=== PATIENT | female | born 1985 | race American Indian/Alaskan Native ===

== ENCOUNTER 2017-06-20 18:37 | Emergency (ER) | payer MEDICAID ==
--- NOTE | 2017-06-20 20:27 | Emergency Department Report ---
ED General Adult HPI - General Chief complaint: Weakness Stated complaint: WEAK/DIZZY Time Seen by Provider: 06/20/17 20:21 Source: patient Mode of arrival: Stretcher Limitations: No Limitations - History of Present Illness Initial comments: Patient is a 32-year-old female past medical history of diabetes and liver disease who presents with weakness. Patient was feeling weak today and lightheaded. She states that she usually feels this way and she needs to get TPN. He states that she has generalized weakness 5-6 times a day the symptoms are moderate TPN makes it better and nothing makes it worse. Patient denies having also chest pain or shortness of breath. - Related Data Home Medications Medication Instructions Recorded Confirmed Last Taken Insulin Lispro [HumaLOG VIAL] 1 unit SUBDERMAL ACHS 09/08/16 09/08/16 Unknown Previous Rx's Medication Instructions Recorded Last Taken Type Amoxicillin/K Clav Tab [Augmentin 1 each PO Q12HR #14 tablet 09/11/16 Unknown Rx 500 MG TAB] Fluconazole [Diflucan TAB] 200 mg PO QDAY #11 tablet 09/11/16 Unknown Rx Promethazine [Phenergan TAB] 25 mg PO Q6HR PRN #20 tab 09/11/16 Unknown Rx Allergies Allergy/AdvReac Type Severity Reaction Status Date / Time levothyroxine sodium Allergy Hives Verified 06/22/13 05:13 [From Synthroid] pregabalin [From Lyrica] Allergy Hives Verified 06/22/13 05:13 propranolol HCl Allergy Hives Verified 06/22/13 05:13 [From Inderal LA] lactose AdvReac Diarrhea Verified 09/10/16 10:18 ED Review of Systems ROS: Stated complaint: WEAK/DIZZY Other details as noted in HPI Constitutional: malaise, weakness. denies: chills, fever Eyes: denies: eye pain, eye discharge, vision change ENT: denies: ear pain, throat pain Respiratory: denies: cough, shortness of breath, wheezing Cardiovascular: denies: chest pain, palpitations Endocrine: no symptoms reported Gastrointestinal: denies: abdominal pain, nausea, diarrhea Genitourinary: denies: urgency, dysuria, discharge Musculoskeletal: denies: back pain, joint swelling, arthralgia Skin: denies: rash, lesions Neurological: denies: headache, weakness, paresthesias Psychiatric: denies: anxiety, depression Hematological/Lymphatic: denies: easy bleeding, easy bruising ED Past Medical Hx - Past Medical History Hx Hypertension: Yes Hx Diabetes: Yes Hx Liver Disease: Yes (cirrhosis, auto immune hepatitis) Additional medical history: awaiting pancreatic transplant (sees [facility]), hypothyroidism. Graves Disease, costochondriasis, diabetic diarrhea - Surgical History Additional Surgical History: tubal ligation - Social History Smoking Status: Never Smoker Substance Use Type: None - Medications Home Medications: Home Medications Medication Instructions Recorded Confirmed Last Taken Type Insulin Lispro [HumaLOG VIAL] 1 unit SUBDERMAL ACHS 09/08/16 09/08/16 Unknown History Amoxicillin/K Clav Tab [Augmentin 1 each PO Q12HR #14 tablet 09/11/16 Unknown Rx 500 MG TAB] Fluconazole [Diflucan TAB] 200 mg PO QDAY #11 tablet 09/11/16 Unknown Rx Promethazine [Phenergan TAB] 25 mg PO Q6HR PRN #20 tab 09/11/16 Unknown Rx ED Physical Exam - General Limitations: No Limitations General appearance: cachectic - Head Head exam: Present: atraumatic, normocephalic - Eye Eye exam: Present: normal appearance - ENT ENT exam: Present: mucous membranes moist - Neck Neck exam: Present: normal inspection - Respiratory Respiratory exam: Present: normal lung sounds bilaterally. Absent: respiratory distress - Cardiovascular Cardiovascular Exam: Present: regular rate, normal rhythm. Absent: systolic murmur, diastolic murmur, rubs, gallop - GI/Abdominal GI/Abdominal exam: Present: soft, normal bowel sounds - Extremities Exam Extremities exam: Present: normal inspection - Back Exam Back exam: Present: normal inspection - Neurological Exam Neurological exam: Present: alert, oriented X3 - Psychiatric Psychiatric exam: Present: normal affect, normal mood - Skin Skin exam: Present: warm, dry, intact, normal color. Absent: rash ED Course Vital Signs 06/20/17 18:56 Temperature 98.1 F Pulse Rate 107 H Respiratory 16 Rate Blood Pressure 102/70 O2 Sat by Pulse 100 Oximetry ED Medical Decision Making - Medical Decision Making Chief medical diagnosis: Hypoglycemia Differential medical diagnosis: Thyroidism, malnutrition, arrhythmia BLOOD work, EKG and IV fluids Patient states that she needs to go to every. Discussed with patient that she should get blood work and at least be evaluated before leaving. The patient still wants to leave. Patient is alert and oriented and can make her own decisions she will leave AGAINST MEDICAL ADVICE. Keep patient return precautions to come back to the ED and she verbalized understanding additional verbal discharge instructions given. Critical care attestation.: If time is entered above; I have spent that time in minutes in the direct care of this critically ill patient, excluding procedure time. ED Disposition Clinical Impression: Weakness Fatigue Qualifiers: Fatigue type: unspecified Qualified Code(s): R53.83 - Other fatigue Disposition: DC-07 LEFT AGAINST MED ADVICE Is pt being admited?: No Does the pt Need Aspirin: No Condition: Stable Instructions: Weakness (ED) Referrals: PRIMARY CARE, [Primary Care Provider] - 3-5 Days
[2017-06-20 20:41] VITALS: BP 148/99
== END 2017-06-20 20:35 | disposition left against medical advice (07) ==
LOC: ED 18:37
DX: R53.1 Weakness (principal); R53.83 Other fatigue; I10 Essential (primary) hypertension; E11.9 Type 2 diabetes mellitus without complications; E03.9 Hypothyroidism, unspecified; K74.60 Unspecified cirrhosis of liver; Z91.040 Latex allergy status; Z88.8 Allergy status to other drugs, medicaments and biological substances; Z88.1 Allergy status to other antibiotic agents
CPT/HCPCS: 82962; 99282

== ENCOUNTER 2018-02-07 11:35 | Outpatient (CLI) | payer MEDICAID ==
[2018-02-07 11:54] LABS: Hematocrit 34.3 % (30.3-42.9); Hemoglobin 10.9 gm/dl (10.1-14.3); Mean Corpuscular HGB Conc 32 % (30-34); Mean Corpuscular Hemoglobin 27 pg (28-32); Mean Corpuscular Volume 86 fl (79-97); Platelet Count 300 K/mm3 (140-440); Red Blood Count 4.01 M/mm3 (3.65-5.03); Red Cell Distribution Width 19.4 % (13.2-15.2)
[2018-02-07 12:14] LABS: Albumin 3.2 g/dL (3.9-5); Calcium 9.2 mg/dL (8.4-10.2)
== END 2018-02-07 11:36 | disposition home or self-care (01) ==
LOC: LAB 11:35
DX: E43 Unspecified severe protein-calorie malnutrition (principal); E86.0 Dehydration; I10 Essential (primary) hypertension; E11.9 Type 2 diabetes mellitus without complications; D64.9 Anemia, unspecified
CPT/HCPCS: 36415; 80053; 83735; 84100; 85027

== ENCOUNTER 2019-08-29 10:19 | Emergency (ER) | payer MEDICAID ==
[2019-08-29 11:27] LABS: Basophils # (Auto) 0.1 K/mm3 (0.0-0.1); Basophils % (Auto) 0.7 % (0.0-1.8); Eosinophils # (Auto) 0.1 K/mm3 (0.0-0.4); Eosinophils % (Auto) 1.8 % (0.0-4.3); Lymphocytes # (Auto) 2.1 K/mm3 (1.2-5.4); Lymphocytes % (Auto) 27.8 % (13.4-35.0); Mean Corpuscular HGB Conc 33 % (30-34); Mean Corpuscular Volume 85 fl (79-97); Monocytes # (Auto) 0.5 K/mm3 (0.0-0.8); Monocytes % (Auto) 7.2 % (0.0-7.3); Platelet Count 207 K/mm3 (140-440); Red Blood Count 2.04 M/mm3 (3.65-5.03); Red Cell Distribution Width 16.5 % (13.2-15.2)
[2019-08-29 11:35] LABS: Hematocrit 17.4 % (30.3-42.9); Hemoglobin 5.7 gm/dl (10.1-14.3)
[2019-08-29 11:37] LABS: Calcium 8.8 mg/dL (8.4-10.2)
[2019-08-29] MEDS ORDERED: SODIUM CHLORIDE 0.9% 500 ML 500 ML IV ONE (11:49)
[2019-08-29] MEDS ORDERED: SODIUM CHLORIDE 0.9% 250ML 250 ML ONE (14:22)
--- NOTE | 2019-08-29 14:34 | Emergency Department Report ---
- General Chief complaint: Recheck/Abnormal Lab/Rx Stated complaint: LOW BLOOD/WEAK Time Seen by Provider: 08/29/19 10:40 Source: patient Mode of arrival: Ambulatory Limitations: No Limitations - History of Present Illness Initial comments: 34-year-old female with a past medical history of recurrent anemia, diabetes, hypertension, autoimmune hepatitis, and chronic renal insufficiency presents to the hospital complaining of symptomatic anemia. She complains of generalized weakness. Patient had outpatient blood work performed ordered by her special effects specialist read days ago. His call today that her hemoglobin was 5.5 and she needs to come to the hospital. She does also on TPN feedings and has a Pérez's catheter to the chest. She states she has recurrent anemia requiring blood transfusion secondary to chronic renal insufficiency. No complaints of melena or hematemesis. Severity scale (0 -10): 0 - Related Data Home Medications Medication Instructions Recorded Confirmed Last Taken Insulin Lispro [HumaLOG VIAL] 1 unit SUBDERMAL ACHS 09/08/16 09/08/16 Unknown Previous Rx's Medication Instructions Recorded Last Taken Type Amoxicillin/K Clav Tab [Augmentin 1 each PO Q12HR #14 tablet 09/11/16 Unknown Rx 500 MG TAB] Fluconazole [Diflucan TAB] 200 mg PO QDAY #11 tablet 09/11/16 Unknown Rx Promethazine [Phenergan] 25 mg PO Q6HR PRN #20 tab 09/11/16 Unknown Rx Allergies Allergy/AdvReac Type Severity Reaction Status Date / Time levothyroxine sodium Allergy Hives Verified 06/22/13 05:13 [From Synthroid] pregabalin [From Lyrica] Allergy Hives Verified 06/22/13 05:13 propranolol HCl Allergy Hives Verified 06/22/13 05:13 [From Inderal LA] lactose AdvReac Diarrhea Verified 09/10/16 10:18 ED Review of Systems ROS: Stated complaint: LOW BLOOD/WEAK Other details as noted in HPI Comment: All other systems reviewed and negative ED Past Medical Hx - Past Medical History Hx Hypertension: Yes Hx Diabetes: Yes Hx Liver Disease: Yes (cirrhosis, auto immune hepatitis) Additional medical history: awaiting pancreatic transplant (sees [place]), hypothyroidism. Graves Disease, costochondriasis, diabetic diarrhea Has a pérez catheter for TPN - Surgical History Past Surgical History?: Yes Additional Surgical History: tubal ligation, right hip fx - Social History Smoking Status: Never Smoker Substance Use Type: None - Medications Home Medications: Home Medications Medication Instructions Recorded Confirmed Last Taken Type Insulin Lispro [HumaLOG VIAL] 1 unit SUBDERMAL ACHS 09/08/16 09/08/16 Unknown History Amoxicillin/K Clav Tab [Augmentin 1 each PO Q12HR #14 tablet 09/11/16 Unknown Rx 500 MG TAB] Fluconazole [Diflucan TAB] 200 mg PO QDAY #11 tablet 09/11/16 Unknown Rx Promethazine [Phenergan] 25 mg PO Q6HR PRN #20 tab 09/11/16 Unknown Rx ED Physical Exam - General Limitations: No Limitations - Other Other exam information: General: No acute distress Head: Atraumatic Eyes: normal appearance, pale conjunctiva ENT: Moist mucous membranes Neck: Normal appearance, no midline tenderness Chest: Clear to auscultation bilaterally CV: Regular rate and rhythm Abdomen: Soft, normal bowel sounds, nontender, nondistended, no rebound or guarding Back: Normal inspection Extremity: Normal inspection infection, full range of motion Neuro: Alert O x 3, no facial asymmetry, speech clear, no gross motor sensory deficit Psych: Appropriate behavior Skin: No rash ED Course Vital Signs 08/29/19 08/29/19 08/29/19 10:23 10:55 15:01 Temperature 97.8 F 97.8 F 98.8 F Pulse Rate 94 H 90 91 H Respiratory 18 17 14 Rate Blood Pressure 146/91 134/108 Blood Pressure 163/89 [Left] O2 Sat by Pulse 98 98 97 Oximetry 08/29/19 08/29/19 08/29/19 15:09 15:16 16:00 Temperature 98.8 F 98.4 F 98.3 F Pulse Rate 91 H 91 H 91 H Respiratory 14 12 12 Rate Blood Pressure 154/89 150/83 175/107 Blood Pressure [Left] O2 Sat by Pulse 99 99 99 Oximetry 08/29/19 08/29/19 08/29/19 16:30 18:12 18:18 Temperature 98.0 F 98 F 98.1 F Pulse Rate 90 91 H 91 H Respiratory 14 14 14 Rate Blood Pressure 166/107 188/95 188/95 Blood Pressure [Left] O2 Sat by Pulse 100 100 96 Oximetry 08/29/19 08/29/19 08/29/19 18:25 18:50 19:15 Temperature 98.4 F 98.4 F 98.3 F Pulse Rate 90 90 91 H Respiratory 13 14 14 Rate Blood Pressure 175/91 179/106 185/102 Blood Pressure [Left] O2 Sat by Pulse 97 97 100 Oximetry 08/29/19 08/29/19 08/29/19 19:45 20:15 20:30 Temperature 98.3 F 98.3 F 98.1 F Pulse Rate 89 91 H 92 H Respiratory 12 14 14 Rate Blood Pressure 170/105 181/112 182/110 Blood Pressure [Left] O2 Sat by Pulse 99 100 98 Oximetry ED Medical Decision Making - Lab Data Result diagrams: 08/29/19 11:16 08/29/19 11:16 Lab Results 08/29/19 08/29/19 08/29/19 Range/Units 11:16 11:16 11:16 WBC 7.4 (4.5-11.0) K/mm3 RBC 2.04 L (3.65-5.03) M/mm3 Hgb 5.7 L* (10.1-14.3) gm/dl Hct 17.4 L* (30.3-42.9) % MCV 85 (79-97) fl MCH 28 (28-32) pg MCHC 33 (30-34) % RDW 16.5 H (13.2-15.2) % Plt Count 207 (140-440) K/mm3 Lymph % (Auto) 27.8 (13.4-35.0) % Gaines % (Auto) 7.2 (0.0-7.3) % Eos % (Auto) 1.8 (0.0-4.3) % Baso % (Auto) 0.7 (0.0-1.8) % Lymph # 2.1 (1.2-5.4) K/mm3 Gaines # 0.5 (0.0-0.8) K/mm3 Eos # 0.1 (0.0-0.4) K/mm3 Baso # 0.1 (0.0-0.1) K/mm3 Seg Neutrophils % 62.5 (40.0-70.0) % Seg Neutrophils # 4.6 (1.8-7.7) K/mm3 Sodium 138 (137-145) mmol/L Potassium 3.5 L (3.6-5.0) mmol/L Chloride 97.1 L (98-107) mmol/L Carbon Dioxide 24 (22-30) mmol/L Anion Gap 20 mmol/L BUN 59 H (7-17) mg/dL Creatinine 3.5 H (0.7-1.2) mg/dL Estimated GFR 18 ml/min BUN/Creatinine Ratio 17 % Glucose 153 H (65-100) mg/dL Calcium 8.8 (8.4-10.2) mg/dL HCG, Qual (Negative) Blood Type O POSITIVE Antibody Screen Negative Crossmatch See Detail 08/29/19 Range/Units 11:16 WBC (4.5-11.0) K/mm3 RBC (3.65-5.03) M/mm3 Hgb (10.1-14.3) gm/dl Hct (30.3-42.9) % MCV (79-97) fl MCH (28-32) pg MCHC (30-34) % RDW (13.2-15.2) % Plt Count (140-440) K/mm3 Lymph % (Auto) (13.4-35.0) % Gaines % (Auto) (0.0-7.3) % Eos % (Auto) (0.0-4.3) % Baso % (Auto) (0.0-1.8) % Lymph # (1.2-5.4) K/mm3 Gaines # (0.0-0.8) K/mm3 Eos # (0.0-0.4) K/mm3 Baso # (0.0-0.1) K/mm3 Seg Neutrophils % (40.0-70.0) % Seg Neutrophils # (1.8-7.7) K/mm3 Sodium (137-145) mmol/L Potassium (3.6-5.0) mmol/L Chloride (98-107) mmol/L Carbon Dioxide (22-30) mmol/L Anion Gap mmol/L BUN (7-17) mg/dL Creatinine (0.7-1.2) mg/dL Estimated GFR ml/min BUN/Creatinine Ratio % Glucose (65-100) mg/dL Calcium (8.4-10.2) mg/dL HCG, Qual Negative (Negative) Blood Type Antibody Screen Crossmatch - Medical Decision Making pt with symptomatic and recurrent anemia. 2 units of packed red blood cells were ordered for transfusion. Patient's has chronic renal insufficiency with mild increase in creatinine compared to previous values on record from 2018. Patient is discharged after infusion to follow-up with PMD/special effects specialist. pt will be signed out to Dr Van to d/c when transfusion complete - Differential Diagnosis iron deficiency, renal insufficiency Critical Care Time: No Critical care attestation.: If time is entered above; I have spent that time in minutes in the direct care of this critically ill patient, excluding procedure time. ED Disposition Clinical Impression: Symptomatic anemia, Encounter for blood transfusion, CRI (chronic renal insufficiency) Disposition: DC- TO HOME OR SELFCARE Is pt being admited?: No Does the pt Need Aspirin: No Condition: Stable Instructions: Blood Transfusion Reactions (ED), Anemia (ED) Additional Instructions: Follow-up with your doctor or doctor/clinic provided. Return if symptoms worsen as indicated by your discharge instructions. Referrals: your, special effects specialist [Other] - 3-5 Days Time of Disposition: 20:40
[2019-08-29] MEDS ORDERED: SODIUM CHLORIDE 0.9% 250ML 250 ML IV ONE (16:11)
[2019-08-29 20:53] VITALS: BP 182/110
== END 2019-08-29 20:40 | disposition home or self-care (01) ==
LOC: ED 10:19
DX: D64.9 Anemia, unspecified (principal); Z01.83 Encounter for blood typing; I12.9 Hypertensive chronic kidney disease with stage 1 through stage 4 chronic kidney disease, or unspecified chronic kidney disease; E11.22 Type 2 diabetes mellitus with diabetic chronic kidney disease; N18.9 Chronic kidney disease, unspecified; Z79.4 Long term (current) use of insulin; Z79.899 Other long term (current) drug therapy; Z91.011 Allergy to milk products; Z88.8 Allergy status to other drugs, medicaments and biological substances; Z98.51 Tubal ligation status
CPT/HCPCS: 36415; 36430; 80048; 84703; 85025; 86850; 86900; 86901; 86920; 99283; J7040; J7050; P9016

== ENCOUNTER 2019-10-02 18:26 | Emergency (ER) | payer MEDICAID ==
--- NOTE | 2019-10-02 18:56 | Emergency Department Report ---
Blank Doc - Documentation Documentation: 34-year-old female that presents with acute headache and dizziness. HX of many comorbities. This initial assessment/diagnostic orders/clinical plan/treatment(s) is/are subject to change based on patient's health status, clinical progression and re- assessment by fellow clinical providers in the ED. Further treatment and workup at subsequent clinical providers discretion. Patient/guardians urged not to elope from the ED as their condition may be serious if not clinically assessed and managed. Initial orders include: 1- Patient sent to MAIN ED for further evaluation and treatment 2- labs 3- UA 4- CT head
[2019-10-02 19:23] LABS: Basophils # (Auto) 0.1 K/mm3 (0.0-0.1); Basophils % (Auto) 1.2 % (0.0-1.8); Eosinophils # (Auto) 0.1 K/mm3 (0.0-0.4); Eosinophils % (Auto) 1.7 % (0.0-4.3); Hematocrit 30.2 % (30.3-42.9); Hemoglobin 9.7 gm/dl (10.1-14.3); Lymphocytes # (Auto) 1.9 K/mm3 (1.2-5.4); Lymphocytes % (Auto) 29.3 % (13.4-35.0); Mean Corpuscular HGB Conc 32 % (30-34); Mean Corpuscular Volume 87 fl (79-97); Monocytes # (Auto) 0.4 K/mm3 (0.0-0.8); Platelet Count 202 K/mm3 (140-440); Red Blood Count 3.47 M/mm3 (3.65-5.03); Red Cell Distribution Width 19.3 % (13.2-15.2)
--- NOTE | 2019-10-02 21:31 | Cat Scan Report ---
CT HEAD WITHOUT CONTRAST INDICATION / CLINICAL INFORMATION: headache. TECHNIQUE: All CT scans at this location are performed using CT dose reduction for ALARA by means of automated e xposure control. COMPARISON: None available. FINDINGS: HEMORRHAGE: No evidence of intracranial hemorrhage or extra-axial fluid collection. EXTRA-AXIAL SPACES: Cortical sulci, sylvian fissures and basilar cisterns have an unremarkable appear ance. VENTRICULAR SYSTEM: The ventricular system is of normal size and configuration. CEREBRAL PARENCHYMA: No areas of abnormal brain parenchymal attenuation are identified. There is no i ndication of recent infarction. MIDLINE SHIFT OR HERNIATION: There is no mass effect. CEREBELLUM / BRAINSTEM: A dilated perivascular space is observed in the inferior aspect of the right putamen. Mild, subtle physiological calcifications are observed in the basal ganglia regions bilatera lly. No significant areas of abnormal brain parenchymal attenuation are identified. INTRACRANIAL VESSELS: Calcified atherosclerotic plaque is present along the course of the cavernous s egments of both internal carotid arteries and at the distal vertebral arteries. These are unusual fin dings in a 34-year-old individual. Is there a history of diabetes or renal failure ORBITS: visualized portions of the orbits have an unremarkable appearance. SOFT TISSUES of HEAD: No significant abnormality. CALVARIUM: Subtle atherosclerotic vascular calcifications are observed within the arteries of the sca lp. PARANASAL SINUSES / MASTOID AIR CELLS: Paranasal sinuses are free from inflammatory mucosal disease. Mastoid air cells are normally pneumatized. ADDITIONAL FINDINGS: None. IMPRESSION: 1. No acute intracranial abnormality. 2. Calcified atherosclerotic plaque in the cavernous segments of both internal carotid arteries and a t the distal vertebral arteries is an unusual finding in a 34-year-old individual. Is there history o f diabetes or renal failure Signer Name: Jaylen Villarreal MD Signed: 10/02/2019 9:27 PM Workstation Name: [id number]
--- NOTE | 2019-10-02 22:25 | Emergency Department Report ---
ED Syncope HPI - General Chief Complaint: Headache Stated Complaint: HEADACHE 3X DAYS Time Seen by Provider: 10/02/19 18:54 Source: patient Exam Limitations: no limitations - History of Present Illness Initial Comments: 34-year-old female with history of anemia, chronic kidney disease, diabetes, hypertension, hypothyroidism, autoimmune hepatitis presents to the ED following a syncopal episode at home. Patient states she was using the bathroom, having a bowel movement, then became lightheaded and dizzy and passed out. Patient states she awoke on the floor. She states she has a history of bowel incontinence, so she was not straining while on the toilet. Patient reports her blood pressure has been elevated with associated global headache for the last 3 days. She denies any fever, nausea, vomiting, chest pain, shortness of breath, cough, abdominal pain. Patient states glucose is elevated at 300 last 2 days as well. Patient reports all of her physicians are at [facility]. Timing/Prior Episodes: single episode today Precipitating Factors: Positive: blurred vision, lightheadedness Context: sitting Loss of Consciousness: unsure Current Symptoms: blurred vision - Related Data Allergies/Adverse Reactions: Allergies levothyroxine sodium [From Synthroid] Allergy (Verified 06/22/13 05:13) Hives pregabalin [From Lyrica] Allergy (Verified 06/22/13 05:13) Hives propranolol HCl [From Inderal LA] Allergy (Verified 06/22/13 05:13) Hives lactose Adverse Reaction (Verified 09/10/16 10:18) Diarrhea Home Medications: Ambulatory Orders Insulin Lispro [HumaLOG VIAL] 1 unit SUBDERMAL ACHS 09/08/16 Amoxicillin/K Clav Tab [Augmentin 500 MG TAB] 1 each PO Q12HR #14 tablet 6 Fluconazole [Diflucan TAB] 200 mg PO QDAY #11 tablet 09/11/16 Promethazine [Phenergan] 25 mg PO Q6HR PRN #20 tab 09/11/16 ED Review of Systems ROS: Stated complaint: HEADACHE 3X DAYS Other details as noted in HPI Comment: All other systems reviewed and negative Constitutional: denies: chills, fever Respiratory: denies: cough, shortness of breath Cardiovascular: denies: chest pain Gastrointestinal: denies: abdominal pain, nausea, vomiting Neurological: headache ED Past Medical Hx - Past Medical History Previous Medical History?: Yes Hx Hypertension: Yes Hx Diabetes: Yes Hx Liver Disease: Yes (cirrhosis, auto immune hepatitis) Hx Renal Disease: Yes Additional medical history: awaiting pancreatic transplant (sees [facility]), hypothyroidism. Graves Disease, costochondriasis, diabetic diarrhea Has a pérez catheter for TPN - Surgical History Past Surgical History?: Yes Additional Surgical History: tubal ligation, right hip fx - Social History Smoking Status: Never Smoker Substance Use Type: None - Medications Home Medications: Home Medications Medication Instructions Recorded Confirmed Last Taken Type Insulin Lispro [HumaLOG VIAL] 1 unit SUBDERMAL ACHS 09/08/16 09/08/16 Unknown History Amoxicillin/K Clav Tab [Augmentin 1 each PO Q12HR #14 tablet 09/11/16 Unknown Rx 500 MG TAB] Fluconazole [Diflucan TAB] 200 mg PO QDAY #11 tablet 09/11/16 Unknown Rx Promethazine [Phenergan] 25 mg PO Q6HR PRN #20 tab 09/11/16 Unknown Rx ED Physical Exam - General Limitations: No Limitations General appearance: alert, in no apparent distress - Head Head exam: Present: atraumatic, normocephalic - Eye Eye exam: Present: normal appearance - ENT ENT exam: Present: mucous membranes moist - Neck Neck exam: Present: normal inspection - Respiratory Respiratory exam: Present: normal lung sounds bilaterally. Absent: respiratory distress - Cardiovascular Cardiovascular Exam: Present: regular rate, normal rhythm - GI/Abdominal GI/Abdominal exam: Present: soft. Absent: distended, tenderness - Extremities Exam Extremities exam: Present: normal inspection - Neurological Exam Neurological exam: Present: alert, oriented X3, CN II-XII intact, motor sensory deficit - Psychiatric Psychiatric exam: Present: normal affect, normal mood - Skin Skin exam: Present: warm, dry, intact, normal color ED Course Vital Signs 10/02/19 10/03/19 18:55 00:12 Temperature 97.6 F Pulse Rate 95 H Pulse Rate [ 89 Anterior Bilateral Throughout] Respiratory 18 Rate Respiratory 17 Rate [Anterior Bilateral Throughout] Blood Pressure 142/61 O2 Sat by Pulse 97 Oximetry - Reevaluation(s) Reevaluation #1: 10/03/19 00:02 Spoke w/ pt multiple times regarding admission for her ARF, hyperkalemia, and syncope. Pt adamantly refuses admission. Reports has had elevated potassium in the past. Understands the seriousness of the condition. Explained that it can cause , pt understands, still refuses admission. Agrees to receiving hyperkalemia treatment prior to leaving. ED Medical Decision Making - Lab Data Result diagrams: 10/02/19 19:10 10/02/19 19:10 - EKG Data -: EKG Interpreted by Me EKG shows normal: sinus rhythm, intervals, QRS complexes, ST-T waves Rate: normal - EKG Data Interpretation: no acute changes - Radiology Data Radiology results: report reviewed, image reviewed - Medical Decision Making 34-year-old female with acute on chronic renal failure, hyperkalemia, and syncope. Vital signs are normal. CT head is negative for any acute abnormality. It does show calcified atherosclerotic plaque in both internal carotid arteries and the distal vertebral arteries. Likely due to patient's kayden betes and renal disease. Neuro exam is nonfocal. EKG is normal. Labs show decreased GFR compared to last month and also elevated potassium. Albuterol nebs, insulin, calcium gluconate, Kayexalate ordered for treatment (pt refused the kayexalate). I explained to the patient results of her CAT scan and lab work. Due to her syncopal episode and hyperkalemia, I advised admission for the patient. However, patient refuses to be admitted. Patient states she does not like this hospital and will leave and go to another hospital. Despite this, patient decided to leave against medical advise. She has normal mental status and full decisional capacity. The patient understands her condition and the risks of leaving [facility], including permanent disability and . Patient has been informed that she may return for care at any time and has been referred to her regular physician for follow REMI. - Differential Diagnosis intracranial abnormality, arrythmia, DKA Critical Care Time: Yes Critical care time in (mins) excluding proc time.: 35 Critical care attestation.: If time is entered above; I have spent that time in minutes in the direct care of this critically ill patient, excluding procedure time. Critical Care Time: 35 minutes ED Disposition Clinical Impression: Syncope, Hyperkalemia, Acute on chronic renal insufficiency, Hyperglycemia Disposition: -07 LEFT AGAINST MED ADVICE Is pt being admited?: No Condition: Stable Instructions: Chronic Kidney Disease (ED), Syncope (ED), Hyperkalemia (ED), Diabetic Hyperglycemia (ED) Additional Instructions: Please follow up with your physicians as soon as possible. You may return to the ER at any time. Referrals: PRIMARY CARE, [Primary Care Provider] - REMI Forms: AMA Form
[2019-10-02] MEDS ORDERED: CALCIUM GLUCONATE 1,000 MG in SODIUM CHLORIDE 0.9% 100 ML IV ONE (22:27)
[2019-10-02] MEDS ORDERED: DEXTROSE 50% IN WATER (25GM) 50 ML SYRINGE IV ONE (22:53)
[2019-10-02] MEDS ORDERED: INSULIN REGULAR, HUMAN 100 UNITS/1 ML IV ONE (22:53)
[2019-10-02] MEDS ORDERED: ALBUTEROL 2.5 MG/3 ML NEBU IH ONE (23:41)
[2019-10-02] MEDS: SODIUM POLYSTYRENE 15 GM/60 ML ORAL LIQD PO ONE (23:51)
[2019-10-03] MEDS: SODIUM POLYSTYRENE 15 GM/60 ML ORAL LIQD PO ONE (00:18)
[2019-10-03 02:36] VITALS: BP 92/65
== END 2019-10-03 02:40 | disposition left against medical advice (07) ==
LOC: ED 18:26
DX: E11.65 Type 2 diabetes mellitus with hyperglycemia (principal); E87.5 Hyperkalemia; I10 Essential (primary) hypertension; E03.9 Hypothyroidism, unspecified; Z98.51 Tubal ligation status; Z79.899 Other long term (current) drug therapy; Z79.4 Long term (current) use of insulin; Z88.1 Allergy status to other antibiotic agents; Z88.6 Allergy status to analgesic agent
CPT/HCPCS: 36415; 70450; 80048; 82805; 82962; 84703; 85025; 93005; 93010; 94644; 96365; 96375; 99285; J0610; J1815

== ENCOUNTER 2021-04-17 10:19 | Inpatient (IN) | payer MEDICARE ==
[2021-04-17] MEDS ORDERED: NALOXONE 2 MG/2 ML INJ IV ONE (10:20)
[2021-04-17] MEDS ORDERED: NALOXONE 2 MG/2 ML INJ ONE (10:22)
[2021-04-17] MEDS ORDERED: LORazepam 2 MG/ML VIAL ONE (10:30)
[2021-04-17 10:57] LABS: Hematocrit 21.3 % (30.3-42.9); Hemoglobin 6.9 gm/dl (10.1-14.3); Mean Corpuscular HGB Conc 32 % (30-34); Mean Corpuscular Volume 108 fl (79-97); Red Blood Count 1.97 M/mm3 (3.65-5.03)
[2021-04-17 10:58] LABS: Platelet Count 52 K/mm3 (140-440); Red Cell Distribution Width 22.7 % (13.2-15.2)
[2021-04-17] MEDS ORDERED: LORazepam 2 MG/ML VIAL IV ONE ×2 (11:01→14:04)
[2021-04-17] MEDS ORDERED: diphenhydrAMINE 50 MG/ML VIAL IV ONE (11:02)
[2021-04-17 11:20] LABS: INR 1.18 (0.87-1.13)
[2021-04-17 11:21] LABS: Partial Thromboplastin Time 37.1 Sec. (24.2-36.6); Thrombin Time 17.7 Sec. (15.1-19.6)
--- NOTE | 2021-04-17 11:31 | Emergency Department Report ---
HPI - General Chief Complaint: Altered Mental Status Time Seen by Provider: 04/17/21 10:23 - HPI HPI: This is a 35-year-old female presents to the emergency department via EMS from home with the complaint of altered mental status. Apparently the patient was last seen at her normal baseline mentation at about 4:30 AM by the patient's son. This morning when the patient "woke up" she appeared less responsive than usual. Family checked her vital signs and found her to have a low blood pressure and felt that she was confused and called for EMS. Initially EMS called us saying that the patient was unresponsive. Upon arrival to the emergency department she is talking, but the only thing she is saying is "I am cold." There was concern for a blown pupil the patient's daughter, who is providing most of the information, tells me that she has a history of recent retinal detachment and surgery. The patient has a past medical history of severe gastroparesis in which she gets TPN through a right chest port. She has a history of diabetes, BURCIAGA, previous TIAs, and is end-stage renal on hemodialysis. The patient is a poor historian secondary to her current condition. The patient's daughter says that she usually is conversive, AAO x3. ED Past Medical Hx - Past Medical History Previous Medical History?: Yes Hx Hypertension: Yes Hx Diabetes: Yes Hx Liver Disease: Yes (cirrhosis, auto immune hepatitis) Hx Renal Disease: Yes Additional medical history: awaiting pancreatic transplant (sees [facility]), hypothyroidism. Graves Disease, costochondriasis, diabetic diarrhea Has a pérez catheter for TPN - Surgical History Past Surgical History?: Yes Additional Surgical History: tubal ligation, right hip fx - Social History Smoking Status: Unknown if ever smoked Substance Use Type: None - Medications Home Medications: Home Medications Medication Instructions Recorded Confirmed Last Taken Type Insulin Lispro [HumaLOG VIAL] 1 unit SUBDERMAL ACHS 09/08/16 09/08/16 Unknown History Amoxicillin/K Clav Tab [Augmentin 1 each PO Q12HR #14 tablet 09/11/16 Unknown Rx 500 MG TAB] Fluconazole [Diflucan TAB] 200 mg PO QDAY #11 tablet 09/11/16 Unknown Rx Promethazine [Phenergan] 25 mg PO Q6HR PRN #20 tab 09/11/16 Unknown Rx ED Review of Systems ROS: Stated complaint: POSSIBLE STROKE Other details as noted in HPI Comment: Unobtainable due to pts medical conditions Physical Exam - Physical Exam Vital Signs: Vital Signs 04/17/21 10:40 Pulse Rate 70 Respiratory 16 Rate Blood Pressure 123/82 Blood Pressure 123/82 [Left] O2 Sat by Pulse 100 Oximetry Physical Exam: GENERAL: The patient is well-developed well-nourished. HENT: Normocephalic. Atraumatic. Patient has moist mucous membranes. EYES: Extraocular motions are intact. Pupils are symmetric with the left pupil dilated. NECK: Supple. Trachea is midline. CHEST/LUNGS: Clear to auscultation. There is no respiratory distress noted. Right sided chest port. HEART/CARDIOVASCULAR: Regular. There is no tachycardia. There is no murmur. ABDOMEN: Abdomen is soft, nontender. Patient has normal bowel sounds. There is no abdominal distention. SKIN: Skin is warm and dry. NEURO: Patient is awake but mostly nonverbal. Not following commands, but seen moving her extremities. MUSCULOSKELETAL: There is no tenderness or deformity. There is no limitation range of motion. There is a patent appearing left upper extremity dialysis fistula. ED Course Vital Signs 04/17/21 10:40 Pulse Rate 70 Respiratory 16 Rate Blood Pressure 123/82 Blood Pressure 123/82 [Left] O2 Sat by Pulse 100 Oximetry ED Medical Decision Making - Lab Data Result diagrams: 04/17/21 10:45 04/17/21 10:45 Lab Results 04/17/21 04/17/21 04/17/21 Range/Units 10:23 10:45 10:45 WBC 3.9 L (4.5-11.0) K/mm3 RBC 1.97 L (3.65-5.03) M/mm3 Hgb 6.9 L (10.1-14.3) gm/dl Hct 21.3 L (30.3-42.9) % MCV 108 H (79-97) fl MCH 35 H (28-32) pg MCHC 32 (30-34) % RDW 22.7 H (13.2-15.2) % Plt Count 52 L (140-440) K/mm3 [place] % (Auto) Medical Records Secretary Add Manual Diff Complete Total Counted 100 Seg Neuts % (Manual) 81.0 H (40.0-70.0) % Lymphocytes % (Manual) 19.0 (13.4-35.0) % Nucleated RBC % 2.0 H (0.0-0.9) % Seg Neutrophils # Man 3.2 (1.8-7.7) K/mm3 Band Neutrophils # 0.0 K/mm3 Lymphocytes # (Manual) 0.7 L (1.2-5.4) K/mm3 Abs React Lymphs (Man) 0.0 K/mm3 Monocytes # (Manual) 0.0 (0.0-0.8) K/mm3 Eosinophils # (Manual) 0.0 (0.0-0.4) K/mm3 Basophils # (Manual) 0.0 (0.0-0.1) K/mm3 Metamyelocytes # 0.0 K/mm3 Myelocytes # 0.0 K/mm3 Promyelocytes # 0.0 K/mm3 Blast Cells # 0.0 K/mm3 WBC Morphology Not Reportable Hypersegmented Neuts Not Reportable Hyposegmented Neuts Not Reportable Hypogranular Neuts Not Reportable Smudge Cells Not Reportable Toxic Granulation Not Reportable Toxic Vacuolation Not Reportable Dohle Bodies Not Reportable Pelger-Huet Anomaly Not Reportable Vikki Rods Not Reportable Platelet Estimate Consistent w auto Clumped Platelets Not Reportable Plt Clumps, EDTA Not Reportable Large Platelets Not Reportable Giant Platelets Not Reportable Platelet Satelliting Not Reportable Plt Morphology Comment Not Reportable RBC Morphology Not Reportable Dimorphic RBCs Not Reportable Polychromasia Not Reportable Hypochromasia Rare Poikilocytosis Not Reportable Anisocytosis 1+ Microcytosis Not Reportable Macrocytosis Not Reportable Spherocytes Not Reportable Pappenheimer Bodies Not Reportable Sickle Cells Not Reportable Target Cells Not Reportable Tear Drop Cells Not Reportable Ovalocytes Rare Helmet Cells Not Reportable Ortiz-Neshanic Bodies Not Reportable [place] Rings Not Reportable [place] Cells Not Reportable Bite Cells Not Reportable Crenated Cell Not Reportable Elliptocytes Not Reportable Acanthocytes (Spur) Not Reportable Rouleaux Not Reportable Hemoglobin C Crystals Not Reportable Schistocytes Rare Malaria parasites Not Reportable Gilberto Bodies Not Reportable Hem Pathologist Commnt No PT 15.5 H (12.2-14.9) Sec. INR 1.18 H (0.87-1.13) APTT 37.1 H (24.2-36.6) Sec. Thrombin Time 17.7 (15.1-19.6) Sec. Sodium (137-145) mmol/L Potassium (3.6-5.0) mmol/L Chloride (98-107) mmol/L Carbon Dioxide (22-30) mmol/L Anion Gap mmol/L BUN (7-17) mg/dL Creatinine (0.6-1.2) mg/dL Estimated GFR ml/min BUN/Creatinine Ratio % Glucose (65-100) mg/dL POC Glucose 193 H (70-105) mg/dL Calcium (8.4-10.2) mg/dL Total Bilirubin (0.1-1.2) mg/dL AST (5-40) units/L ALT (7-56) units/L Alkaline Phosphatase (35-129) units/L Ammonia (25-60) umol/L Total Creatine Kinase (30-135) units/L CK-MB (CK-2) (0.0-4.0) ng/mL CK-MB (CK-2) Rel Index (0-4) Troponin T (0.00-0.029) ng/mL Total Protein (6.3-8.2) g/dL Albumin (3.9-5) g/dL Albumin/Globulin Ratio % TSH (0.270-4.200) mlU/mL Free T4 (0.76-1.46) ng/dL Urine Color (Yellow) Urine Turbidity (Clear) Urine pH (5.0-7.0) Ur Specific [place] (1.003-1.030) Urine Protein (Negative) mg/dL Urine Glucose (UA) (Negative) mg/dL Urine Ketones (Negative) mg/dL Urine Blood (Negative) Urine Nitrite (Negative) Urine Bilirubin (Negative) Urine Urobilinogen (<2.0) mg/dL Ur Leukocyte Esterase (Negative) Urine WBC (Auto) (0.0-6.0) /HPF Urine RBC (Auto) (0.0-6.0) /HPF U Epithel Cells (Auto) (0-13.0) /HPF Urine WBC Clumps /HPF Urine Opiates Screen Urine Methadone Screen Ur Barbiturates Screen Ur Phencyclidine Scrn Ur Amphetamines Screen U Benzodiazepines Scrn Urine Cocaine Screen U Marijuana (THC) Screen Drugs of Abuse Note Plasma/Serum Alcohol (0-0.07) % Blood Type Antibody Screen Crossmatch 04/17/21 04/17/21 04/17/21 Range/Units 10:45 10:45 10:45 WBC (4.5-11.0) K/mm3 RBC (3.65-5.03) M/mm3 Hgb (10.1-14.3) gm/dl Hct (30.3-42.9) % MCV (79-97) fl MCH (28-32) pg MCHC (30-34) % RDW (13.2-15.2) % Plt Count (140-440) K/mm3 [place] % (Auto) Add Manual Diff Total Counted Seg Neuts % (Manual) (40.0-70.0) % Lymphocytes % (Manual) (13.4-35.0) % Nucleated RBC % (0.0-0.9) % Seg Neutrophils # Man (1.8-7.7) K/mm3 Band Neutrophils # K/mm3 Lymphocytes # (Manual) (1.2-5.4) K/mm3 Abs React Lymphs (Man) K/mm3 Monocytes # (Manual) (0.0-0.8) K/mm3 Eosinophils # (Manual) (0.0-0.4) K/mm3 Basophils # (Manual) (0.0-0.1) K/mm3 Metamyelocytes # K/mm3 Myelocytes # K/mm3 Promyelocytes # K/mm3 Blast Cells # K/mm3 WBC Morphology Hypersegmented Neuts Hyposegmented Neuts Hypogranular Neuts Smudge Cells Toxic Granulation Toxic Vacuolation Dohle Bodies Pelger-Huet Anomaly Vikki Rods Platelet Estimate Clumped Platelets Plt Clumps, EDTA Large Platelets Giant Platelets Platelet Satelliting Plt Morphology Comment RBC Morphology Dimorphic RBCs Polychromasia Hypochromasia Poikilocytosis Anisocytosis Microcytosis Macrocytosis Spherocytes Pappenheimer Bodies Sickle Cells Target Cells Tear Drop Cells Ovalocytes Helmet Cells Ortiz-Neshanic Bodies [place] Rings [place] Cells Bite Cells Crenated Cell Elliptocytes Acanthocytes (Spur) Rouleaux Hemoglobin C Crystals Schistocytes Malaria parasites Gilberto Bodies Hem Pathologist Commnt PT (12.2-14.9) Sec. INR (0.87-1.13) APTT (24.2-36.6) Sec. Thrombin Time (15.1-19.6) Sec. Sodium 137 (137-145) mmol/L Potassium 4.0 (3.6-5.0) mmol/L Chloride 101.3 (98-107) mmol/L Carbon Dioxide 26 (22-30) mmol/L Anion Gap 14 mmol/L BUN 37 H (7-17) mg/dL Creatinine 4.3 H (0.6-1.2) mg/dL Estimated GFR 14 ml/min BUN/Creatinine Ratio 9 % Glucose 207 H (65-100) mg/dL POC Glucose (70-105) mg/dL Calcium 7.7 L (8.4-10.2) mg/dL Total Bilirubin 0.50 (0.1-1.2) mg/dL AST 73 H (5-40) units/L ALT 58 H (7-56) units/L Alkaline Phosphatase 379 H (35-129) units/L Ammonia 22.0 L (25-60) umol/L Total Creatine Kinase 118 (30-135) units/L CK-MB (CK-2) 6.7 H (0.0-4.0) ng/mL CK-MB (CK-2) Rel Index 5.6 H (0-4) Troponin T 0.108 H* (0.00-0.029) ng/mL Total Protein 5.5 L (6.3-8.2) g/dL Albumin 2.9 L (3.9-5) g/dL Albumin/Globulin Ratio 1.1 % TSH 83.070 H (0.270-4.200) mlU/mL Free T4 (0.76-1.46) ng/dL Urine Color (Yellow) Urine Turbidity (Clear) Urine pH (5.0-7.0) Ur Specific [place] (1.003-1.030) Urine Protein (Negative) mg/dL Urine Glucose (UA) (Negative) mg/dL Urine Ketones (Negative) mg/dL Urine Blood (Negative) Urine Nitrite (Negative) Urine Bilirubin (Negative) Urine Urobilinogen (<2.0) mg/dL Ur Leukocyte Esterase (Negative) Urine WBC (Auto) (0.0-6.0) /HPF Urine RBC (Auto) (0.0-6.0) /HPF U Epithel Cells (Auto) (0-13.0) /HPF Urine WBC Clumps /HPF Urine Opiates Screen Urine Methadone Screen Ur Barbiturates Screen Ur Phencyclidine Scrn Ur Amphetamines Screen U Benzodiazepines Scrn Urine Cocaine Screen U Marijuana (THC) Screen Drugs of Abuse Note Plasma/Serum Alcohol (0-0.07) % Blood Type Antibody Screen Crossmatch 04/17/21 04/17/21 04/17/21 Range/Units 10:45 10:55 11:07 WBC (4.5-11.0) K/mm3 RBC (3.65-5.03) M/mm3 Hgb (10.1-14.3) gm/dl Hct (30.3-42.9) % MCV (79-97) fl MCH (28-32) pg MCHC (30-34) % RDW (13.2-15.2) % Plt Count (140-440) K/mm3 [place] % (Auto) Add Manual Diff Total Counted Seg Neuts % (Manual) (40.0-70.0) % Lymphocytes % (Manual) (13.4-35.0) % Nucleated RBC % (0.0-0.9) % Seg Neutrophils # Man (1.8-7.7) K/mm3 Band Neutrophils # K/mm3 Lymphocytes # (Manual) (1.2-5.4) K/mm3 Abs React Lymphs (Man) K/mm3 Monocytes # (Manual) (0.0-0.8) K/mm3 Eosinophils # (Manual) (0.0-0.4) K/mm3 Basophils # (Manual) (0.0-0.1) K/mm3 Metamyelocytes # K/mm3 Myelocytes # K/mm3 Promyelocytes # K/mm3 Blast Cells # K/mm3 WBC Morphology Hypersegmented Neuts Hyposegmented Neuts Hypogranular Neuts Smudge Cells Toxic Granulation Toxic Vacuolation Dohle Bodies Pelger-Huet Anomaly Vikki Rods Platelet Estimate Clumped Platelets Plt Clumps, EDTA Large Platelets Giant Platelets Platelet Satelliting Plt Morphology Comment RBC Morphology Dimorphic RBCs Polychromasia Hypochromasia Poikilocytosis Anisocytosis Microcytosis Macrocytosis Spherocytes Pappenheimer Bodies Sickle Cells Target Cells Tear Drop Cells Ovalocytes Helmet Cells Ortiz-Neshanic Bodies [place] Rings [place] Cells Bite Cells Crenated Cell Elliptocytes Acanthocytes (Spur) Rouleaux Hemoglobin C Crystals Schistocytes Malaria parasites Gilberto Bodies Hem Pathologist Commnt PT (12.2-14.9) Sec. INR (0.87-1.13) APTT (24.2-36.6) Sec. Thrombin Time (15.1-19.6) Sec. Sodium (137-145) mmol/L Potassium (3.6-5.0) mmol/L Chloride (98-107) mmol/L Carbon Dioxide (22-30) mmol/L Anion Gap mmol/L BUN (7-17) mg/dL Creatinine (0.6-1.2) mg/dL Estimated GFR ml/min BUN/Creatinine Ratio % Glucose (65-100) mg/dL POC Glucose 243 H (70-105) mg/dL Calcium (8.4-10.2) mg/dL Total Bilirubin (0.1-1.2) mg/dL AST (5-40) units/L ALT (7-56) units/L Alkaline Phosphatase (35-129) units/L Ammonia (25-60) umol/L Total Creatine Kinase (30-135) units/L CK-MB (CK-2) (0.0-4.0) ng/mL CK-MB (CK-2) Rel Index (0-4) Troponin T (0.00-0.029) ng/mL Total Protein (6.3-8.2) g/dL Albumin (3.9-5) g/dL Albumin/Globulin Ratio % TSH (0.270-4.200) mlU/mL Free T4 (0.76-1.46) ng/dL Urine Color (Yellow) Urine Turbidity (Clear) Urine pH (5.0-7.0) Ur Specific [place] (1.003-1.030) Urine Protein (Negative) mg/dL Urine Glucose (UA) (Negative) mg/dL Urine Ketones (Negative) mg/dL Urine Blood (Negative) Urine Nitrite (Negative) Urine Bilirubin (Negative) Urine Urobilinogen (<2.0) mg/dL Ur Leukocyte Esterase (Negative) Urine WBC (Auto) (0.0-6.0) /HPF Urine RBC (Auto) (0.0-6.0) /HPF U Epithel Cells (Auto) (0-13.0) /HPF Urine WBC Clumps /HPF Urine Opiates Screen Urine Methadone Screen Ur Barbiturates Screen Ur Phencyclidine Scrn Ur Amphetamines Screen U Benzodiazepines Scrn Urine Cocaine Screen U Marijuana (THC) Screen Drugs of Abuse Note Plasma/Serum Alcohol < 0.01 (0-0.07) % Blood Type O POSITIVE Antibody Screen Negative Crossmatch See Detail 04/17/21 04/17/21 04/17/21 Range/Units 12:03 12:03 12:27 WBC (4.5-11.0) K/mm3 RBC (3.65-5.03) M/mm3 Hgb (10.1-14.3) gm/dl Hct (30.3-42.9) % MCV (79-97) fl MCH (28-32) pg MCHC (30-34) % RDW (13.2-15.2) % Plt Count (140-440) K/mm3 [place] % (Auto) Add Manual Diff Total Counted Seg Neuts % (Manual) (40.0-70.0) % Lymphocytes % (Manual) (13.4-35.0) % Nucleated RBC % (0.0-0.9) % Seg Neutrophils # Man (1.8-7.7) K/mm3 Band Neutrophils # K/mm3 Lymphocytes # (Manual) (1.2-5.4) K/mm3 Abs React Lymphs (Man) K/mm3 Monocytes # (Manual) (0.0-0.8) K/mm3 Eosinophils # (Manual) (0.0-0.4) K/mm3 Basophils # (Manual) (0.0-0.1) K/mm3 Metamyelocytes # K/mm3 Myelocytes # K/mm3 Promyelocytes # K/mm3 Blast Cells # K/mm3 WBC Morphology Hypersegmented Neuts Hyposegmented Neuts Hypogranular Neuts Smudge Cells Toxic Granulation Toxic Vacuolation Dohle Bodies Pelger-Huet Anomaly Vikki Rods Platelet Estimate Clumped Platelets Plt Clumps, EDTA Large Platelets Giant Platelets Platelet Satelliting Plt Morphology Comment RBC Morphology Dimorphic RBCs Polychromasia Hypochromasia Poikilocytosis Anisocytosis Microcytosis Macrocytosis Spherocytes Pappenheimer Bodies Sickle Cells Target Cells Tear Drop Cells Ovalocytes Helmet Cells Ortiz-Neshanic Bodies [place] Rings [place] Cells Bite Cells Crenated Cell Elliptocytes Acanthocytes (Spur) Rouleaux Hemoglobin C Crystals Schistocytes Malaria parasites Gilberto Bodies Hem Pathologist Commnt PT (12.2-14.9) Sec. INR (0.87-1.13) APTT (24.2-36.6) Sec. Thrombin Time (15.1-19.6) Sec. Sodium (137-145) mmol/L Potassium (3.6-5.0) mmol/L Chloride (98-107) mmol/L Carbon Dioxide (22-30) mmol/L Anion Gap mmol/L BUN (7-17) mg/dL Creatinine (0.6-1.2) mg/dL Estimated GFR ml/min BUN/Creatinine Ratio % Glucose (65-100) mg/dL POC Glucose (70-105) mg/dL Calcium (8.4-10.2) mg/dL Total Bilirubin (0.1-1.2) mg/dL AST (5-40) units/L ALT (7-56) units/L Alkaline Phosphatase (35-129) units/L Ammonia (25-60) umol/L Total Creatine Kinase (30-135) units/L CK-MB (CK-2) (0.0-4.0) ng/mL CK-MB (CK-2) Rel Index (0-4) Troponin T (0.00-0.029) ng/mL Total Protein (6.3-8.2) g/dL Albumin (3.9-5) g/dL Albumin/Globulin Ratio % TSH (0.270-4.200) mlU/mL Free T4 0.51 L (0.76-1.46) ng/dL Urine Color Yellow (Yellow) Urine Turbidity Turbid (Clear) Urine pH 7.0 (5.0-7.0) Ur Specific [place] 1.023 (1.003-1.030) Urine Protein 100 mg/dl (Negative) mg/dL Urine Glucose (UA) 150 (Negative) mg/dL Urine Ketones Neg (Negative) mg/dL Urine Blood Mod (Negative) Urine Nitrite Neg (Negative) Urine Bilirubin Neg (Negative) Urine Urobilinogen < 2.0 (<2.0) mg/dL Ur Leukocyte Esterase Mod (Negative) Urine WBC (Auto) > 182.0 H (0.0-6.0) /HPF Urine RBC (Auto) > 182.0 (0.0-6.0) /HPF U Epithel Cells (Auto) 82.0 H (0-13.0) /HPF Urine WBC Clumps 3+ /HPF Urine Opiates Screen Negative Urine Methadone Screen Negative Ur Barbiturates Screen Negative Ur Phencyclidine Scrn Negative Ur Amphetamines Screen Negative U Benzodiazepines Scrn Negative Urine Cocaine Screen Negative U Marijuana (THC) Screen Negative Drugs of Abuse Note Disclamer Plasma/Serum Alcohol (0-0.07) % Blood Type Antibody Screen Crossmatch - EKG Data -: EKG Interpreted by Me EKG shows normal: sinus rhythm, axis, intervals, QRS complexes (Q waves to the anteroseptal leads), ST-T waves Rate: normal - EKG Data When compared to previous EKG there are: no significant change Interpretation: unchanged when compared t (10/02/19) - Radiology Data Radiology results: report reviewed, image reviewed interpreted by me: Chest x-ray does not show any acute process. There are no pleural effusions, obvious pneumonia and there is no pneumothorax. CT head without contrast INDICATION : Altered mental status. Dysarthria. TECHNIQUE: Axial imaging performed from the skull apex through the skull base without the use of contrast. All CT scans at this location are performed using CT dose reduction for ALARA by means of automated exposure control. COMPARISON: None FINDINGS: Parenchyma: No mass, stroke or hemorrhage. Ventricles: Ventricles are normal in size and appear symmetric. Soft tissues: Soft tissues including the orbits appear normal. Bones: No acute osseous abnormality. Sinuses: Sinuses and mastoid air cells are clear. IMPRESSION: No acute abnormality. - Medical Decision Making This patient presents to the emergency department from home with altered mental status. Initially the patient was made a code stroke secondary to the altered mental status and the EMS report that she had a blown pupil. It turns out that the pupillary differences secondary to recent retinal surgery. The patient does present altered, however, as she is mostly nonverbal and only heard occasionally saying "I am cold." She is seen moving her extremities but otherwise will not follow any commands. The patient was given some Narcan. I do not believe that Narcan was the reason for her increased alertness, but the patient did start talking a little bit more and moving around on the gurney. She still did not follow many of our commands but she required some Ativan and Benadryl in order to get the CT scan of the head completed and continue with her evaluation. She was sent for a CT scan of the head without contrast that did not show any hemorrhage, large vessel occlusion, or any other acute process. Patient was seen by the telemedicine neurologist, Dr. Read, who agrees that she is not a TPA candidate as she is outside of the 4.5-hour window. She also agrees that the patient is more likely some type of metabolic encephalopathy. The patient's labs show anemia with hemoglobin of 6.9, thrombocytopenia with a platelet count of about 50, transaminitis, renal insufficiency consistent with her end-stage renal disease on hemodialysis, urinary tract infection, mild hyperglycemia. The patient also had a very elevated TSH of about 80, and a decreased free T4, consistent with hypothyroidism. With the patient's hypothyroidism, confusion and hypothermia, there is some concern for developing myxedema. The patient was given levothyroxine at the request of the admitting hospitalist. The unit of packed red blood cells have been ordered for transfusion. The patient has been given IV Rocephin for her urinary tract infection. Patient will be admitted to the [facility] and has been accepted for admission by Dr. Savage. Critical Care Time: Yes Critical care time in (mins) excluding proc time.: 31 Critical care attestation.: If time is entered above; I have spent that time in minutes in the direct care of this critically ill patient, excluding procedure time. Critical care time was spent on this patient in doing her initial evaluation, multiple reev aluations, ordering and interpretation of labs and imaging, discussion with the telemedicine neurologist, IV antibiotics, IV levothyroxine for the hypothyroidism and/or developing myxedema, discussion with the hospital service. Critical Care Time: 31 minutes ED Disposition Clinical Impression: Acute encephalopathy, Anemia requiring transfusions, BURCIAGA (nonalcoholic steatohepatitis), Thrombocytopenia, Elevated troponin Hypothyroid Qualifiers: Hypothyroidism type: unspecified Qualified Code(s): E03.9 - Hypothyroidism, unspecified Hypertension Qualifiers: Hypertension type: unspecified Qualified Code(s): I10 - Essential (primary) hypertension UTI (urinary tract infection) Qualifiers: Urinary tract infection type: acute cystitis Hematuria presence: with hematuria Qualified Code(s): N30.01 - Acute cystitis with hematuria Disposition: DC-09 OP ADMIT IP TO THIS HOSP Is pt being admited?: Yes Condition: Serious Time of Disposition: 12:33
--- NOTE | 2021-04-17 11:38 | XRay Report ---
CHEST 1 VIEW 04/17/2021 10:29 AM INDICATION / CLINICAL INFORMATION: AMS. COMPARISON: None available. FINDINGS: SUPPORT DEVICES: Central venous catheter has its tip at the inferior right atrium. HEART / MEDIASTINUM: Mild cardiomegaly. LUNGS / PLEURA: No significant pulmonary or pleural abnormality. No pneumothorax. ADDITIONAL FINDINGS: No significant additional findings. Signer Name: Ottoniel Vizcarra MD Signed: 04/17/2021 11:33 AM Workstation Name: [id number]
--- NOTE | 2021-04-17 12:03 | Cat Scan Report ---
CT head without contrast INDICATION : Altered mental status. Dysarthria. TECHNIQUE: Axial imaging performed from the skull apex through the skull base without the use of con trast. All CT scans at this location are performed using CT dose reduction for ALARA by means of aut omated exposure control. COMPARISON: None FINDINGS: Parenchyma: No mass, stroke or hemorrhage. Ventricles: Ventricles are normal in size and appear symmetric. Soft tissues: Soft tissues including the orbits appear normal. Bones: No acute osseous abnormality. Sinuses: Sinuses and mastoid air cells are clear. IMPRESSION: No acute abnormality. CODE STROKE: Time of Communication (MEDICAL ASSISTANT/CDT): 10:57 AM Licensed Practitioner Receiving Report: Dr. Gardner Signer Name: Ottoniel Vizcarra MD Signed: 04/17/2021 11:58 AM Workstation Name: [id number]
[2021-04-17 12:13] LABS: Albumin 2.9 g/dL (3.9-5); Calcium 7.7 mg/dL (8.4-10.2); Creatine Kinase MB 6.7 ng/mL (0.0-4.0)
--- NOTE | 2021-04-17 12:16 | Emergency Department Report ---
Blank Doc - Documentation Documentation: [facility] Consult Note # Demographics Consult Type: Acute Stroke Level 2 (4.5-24 hrs) Patient Location: Emergency Room First Name: Nallely Last Name: Mars Date of : 1985 Age: 35 Gender: Female Time of Initial Page ( Time): 04/17/2021, 11:48 Time of Return Call ( Time): 04/17/2021, 11:48 # HPI History: 35yo F presents with AMS, she is only stating "i am cold". noted to have dilated pupils, but had recent was normal around 0430, and this AM was hypotensive and confused left eye dilated compared to the right, thought to be after recent retinal surgery # Scores Time of exam and NIHSS (): 04/17/2021, 12:07 Level of Consciousness 1a: [3] = Responds only with reflex motor or unresponsive LOC Questions 1b: [2] = Answers neither correctly LOC Commands 1c: [2] = Performs neither correctly Best Gaze 2: [0] = Normal Visual 3: [0] = No visual loss Facial Palsy 4: [0] = Normal symmetrical movements Motor Arm Left 5a: [0] = No drift Motor Arm Right 5b: [0] = No drift Motor Leg Left 6a: [0] = No drift Motor Leg Right 6b: [0] = No drift Limb Ataxia 7: [0] = Absent Sensory 8: [0] = Normal Best Language 9: [0] = No aphasia Dysarthria 10: [0] = Normal Extinction and Inattention 11: [0] = No abnormality NIHSS Total: 7 # Exam Vitals: temp 94.2 # PMH-FH-SH Past Medical History: Diabetes BURCIAGA, gastroparesis, ESRD, thrombocytopenic and anemic # Assessment Impression: Altered Mental Status # Plan Thrombolytic/Intervention: NOT IV Thrombolytic or IA Intervention Thrombolytic Exclusion (< 3 hour window): other (see below) Thrombolytic Exclusion: > 4.5 hours Intraarterial Exclusion: clinically not consistent with stroke Other: I have discussed my recommendations with the referring provider Additional Recommendations: Metabolic and infectious evaluation. If no cause found then MRI brain for further eval is reasonable # Logistics Telemedicine: Interactive 2 way audio and visual telecommunication technology was utilized during this visit
[2021-04-17 12:39] LABS: Total Cells Counted 100
[2021-04-17 12:40] LABS: Anisocytosis 1+
[2021-04-17 12:41] LABS: Hypochromasia Rare; Ovalocytes Rare; Platelet Estimate Consistent w Auto; Schistocytes Rare
[2021-04-17 12:44] LABS: Bilirubin,Urine NEG (Negative); Blood,Urine MOD (Negative); Color,Urine Yellow (Yellow); Urobilinogen,Urine < 2.0 mg/dL (<2.0)
[2021-04-17 12:45] LABS: Amphetamine Screen,Urine Negative; Benzodiazepines Screen,Urine Negative; Cannabinoid Screen,Urine Negative; Cocaine Screen,Urine Negative; Methadone Screen,Urine Negative; Opiate Screen,Urine Negative
[2021-04-17 12:48] LABS: RBC,Urine > 182.0 /HPF (0.0-6.0)
[2021-04-17 12:49] LABS: WBC,Urine > 182.0 /HPF (0.0-6.0)
[2021-04-17] MEDS ORDERED: LEVOTHYROXINE 100 MCG INJ IV ONE ×2 (13:08→13:10)
[2021-04-17] MEDS ORDERED: SODIUM CHLORIDE 0.9% 500 ML 500 ML IV ONE (14:42)
[2021-04-17] MEDS ORDERED: cefTRIAXone/NS 1 GM/50 ML 1 GM/50 ML BAG IV ONE (15:29)
[2021-04-17] MEDS ORDERED: ONDANSETRON 4 MG/2 ML INJ IV PRN (17:14)
[2021-04-17] MEDS ORDERED: MORPHINE 2 MG/1 ML INJ IV PRN (17:14)
[2021-04-17] MEDS ORDERED: METOCLOPRAMIDE 10 MG/2 ML INJ IV PRN ×2 (17:14→18:00)
[2021-04-17] MEDS ORDERED: ACETAMINOPHEN 325 MG TAB PO PRN (17:14)
[2021-04-17] MEDS ORDERED: HYDROmorphone 1 MG/1 ML INJ IV PRN (17:14)
[2021-04-17] MEDS ORDERED: SODIUM CHLORIDE 0.9% 1000 ML 1,000 ML IV SCH (17:15)
[2021-04-17] MEDS: FAMOTIDINE 20 MG/2 ML INJ IV SCH (21:59)
[2021-04-18] MEDS ORDERED: hydrALAZINE 20 MG/1 ML INJ IV PRN (00:51)
[2021-04-18] MEDS: INSULIN LISPRO 100 UNIT/ML SUB-Q SCH ×4 (01:13→17:35)
[2021-04-18] MEDS ORDERED: LEVOTHYROXINE 100 MCG INJ IV SCH (06:00)
[2021-04-18 06:33] LABS: Hematocrit 28.3 % (30.3-42.9); Hemoglobin 9.3 gm/dl (10.1-14.3); Mean Corpuscular HGB Conc 33 % (30-34); Mean Corpuscular Volume 101 fl (79-97); Red Blood Count 2.81 M/mm3 (3.65-5.03)
[2021-04-18 06:47] LABS: Albumin 3.5 g/dL (3.9-5)
[2021-04-18 06:55] LABS: Free T4 (Free Thyroxine) 0.52 ng/dL (0.76-1.46)
[2021-04-18 07:04] LABS: Platelet Count 93 K/mm3 (140-440); Red Cell Distribution Width 25.6 % (13.2-15.2)
--- NOTE | 2021-04-18 07:20 | History and Physical Report ---
History of Present Illness Date of examination: 04/17/21 Date of admission: 04/17/21 14:41 Chief complaint: Altered sensorium and severe weakness History of present illness: 35-year-old female presents to emergency department with bariatric sensorium. As per the patient is unclear normal mentation was around 4:30 AM. Patient is less responsive and more confused. Opens her eyes and tracks to person. Not able to answer any questions. Patient states that she is very cold. Patient has past medical history of gastroparesis and gets TPN through the right chest port. Not sure whether still getting TPN at this point. Patient also has a history of diabetes, Carpenter previous CVAs and on hemodialysis. Very poor historian. - Past Medical History Previous Medical History?: Yes --Hypertension: Yes --Diabetes: Yes --Liver Disease: Yes (cirrhosis, auto immune hepatitis) --Renal Disease: Yes --Additional medical history: awaiting pancreatic transplant (sees Brendan), hypothyroidism. Graves Disease, costochondriasis, diabetic diarrhea Has a pérez catheter for TPN - Surgical History Past Surgical History?: Yes Additional Surgical History: tubal ligation, right hip fx - Social History Smoking Status: Unknown if ever smoked Substance Use Type: None - Medications Home Medications: Home Medications Medication Instructions Recorded Confirmed Last Taken Type Insulin Lispro [HumaLOG VIAL] 1 unit SUBDERMAL ACHS 09/08/16 09/08/16 Unknown History Amoxicillin/K Clav Tab [Augmentin 1 each PO Q12HR #14 tablet 09/11/16 Unknown Rx 500 MG TAB] Fluconazole [Diflucan TAB] 200 mg PO QDAY #11 tablet 09/11/16 Unknown Rx Promethazine [Phenergan] 25 mg PO Q6HR PRN #20 tab 09/11/16 Unknown Rx Review of Systems ROS: VALIDATION ANALYST decreased responsiveness Constitutional no weight loss or weight gain no fever or chills HEENT no sore throat no post nasal drip no diplopia Neck no neck stiffness no lymph gland enlargement Chest and lungs no shortness of breath cough or wheezing CVS no chest pain no diaphoresis no palpitations GI no nausea no vomiting no diarrhea Genitourinary system no dysuria no flank pain Musculoskeletal system no muscle pains no joint pains Skin no rash no itching Psychiatric no depression no homicidal or suicidal tendencies Hematologic no lymphedema or bruising Endocrine no polydipsia no polyuria no cold intolerance no heat intolerance Medications and Allergies Allergies Allergy/AdvReac Type Severity Reaction Status Date / Time levothyroxine sodium Allergy Hives Verified 06/22/13 05:13 [From Synthroid] pregabalin [From Lyrica] Allergy Hives Verified 06/22/13 05:13 propranolol HCl Allergy Hives Verified 06/22/13 05:13 [From Inderal LA] lactose AdvReac Diarrhea Verified 09/10/16 10:18 Home Medications Medication Instructions Recorded Confirmed Last Taken Type Insulin Lispro [HumaLOG VIAL] 1 unit SUBDERMAL ACHS 09/08/16 09/08/16 Unknown History Amoxicillin/K Clav Tab [Augmentin 1 each PO Q12HR #14 tablet 09/11/16 Unknown Rx 500 MG TAB] Fluconazole [Diflucan TAB] 200 mg PO QDAY #11 tablet 09/11/16 Unknown Rx Promethazine [Phenergan] 25 mg PO Q6HR PRN #20 tab 09/11/16 Unknown Rx Aspirin EC 81 mg PO QDAC 04/17/21 04/17/21 Unknown History Atorvastatin 40 mg PO QDAY 04/17/21 04/17/21 Unknown History HYDROcodone/APAP 7.5-325 1 tab PO TID PRN MDD 8 04/17/21 04/17/21 Unknown Hist ory Metoprolol Tartrate 25 mg PO BID 04/17/21 04/17/21 Unknown History Active Meds: Active Medications Acetaminophen (Acetaminophen 325 Mg Tab) 650 mg PO Q4H PRN PRN Reason: Pain MILD(1-3)/Fever >100.5/NICHOLE Famotidine (Famotidine 20 Mg/2 Ml Inj) 10 mg IV BID [facility] Last Admin: 04/17/21 21:59 Dose: 10 mg Documented by: Hydralazine HCl (Hydralazine 20 Mg/1 Ml Inj) 10 mg IV Q4HR PRN PRN Reason: Blood Pressure Last Admin: 04/18/21 02:23 Dose: 10 mg Documented by: Hydromorphone HCl (Hydromorphone 1 Mg/1 Ml Inj) 1 mg IV Q3H PRN PRN Reason: Pain , Severe (7-10) Sodium Chloride (Nacl 0.9% 1000 Ml) 1,000 mls @ 125 mls/hr IV DIRECT [facility] Insulin Human Lispro (Insulin Lispro 100 Unit/Ml) 0 unit SUB-Q Q6HR [facility]; Protocol Last Admin: 04/18/21 05:39 Dose: Not Given Documented by: Levothyroxine Sodium (Levothyroxine 100 Mcg Inj) 150 mcg IV DAILY@0600 [facility] Last Admin: 04/18/21 05:39 Dose: Not Given Documented by: Metoclopramide HCl (Metoclopramide 10 Mg/2 Ml Inj) 5 mg IV Q6H PRN PRN Reason: Nausea And Vomiting Morphine Sulfate (Morphine 2 Mg/1 Ml Inj) 2 mg IV Q4H PRN PRN Reason: Pain, Moderate (4-6) Ondansetron HCl (Ondansetron 4 Mg/2 Ml Inj) 4 mg IV Q8H PRN PRN Reason: Nausea And Vomiting Sodium Chloride (Sodium Chloride 0.9% 10 Ml Flush Syringe) 10 ml IV BID [facility] Last Admin: 04/17/21 21:59 Dose: 10 ml Documented by: Sodium Chloride (Sodium Chloride 0.9% 10 Ml Flush Syringe) 10 ml IV PRN PRN PRN Reason: LINE FLUSH Exam - Constitutional Vitals: Temp Pulse Resp BP Pulse Ox 97.6 F 63 12 133/90 94 04/18/21 06:34 04/18/21 06:21 04/18/21 06:21 04/18/21 06:21 04/18/21 06:21 General appearance: Present: no acute distress, well-nourished - EENT Eyes: Present: PERRL ENT: hearing intact, clear oral mucosa - Neck Neck: Present: supple, normal ROM - Respiratory Respiratory effort: normal Respiratory: bilateral: CTA - Cardiovascular Heart rate: 78 Rhythm: regular Heart Sounds: Present: S1 & S2. Absent: rub, click - Extremities Extremities: pulses symmetrical, No edema Peripheral Pulses: within normal limits - Abdominal General gastrointestinal: Present: soft, non-tender, non-distended, normal bowel sounds Female genitourinary: Present: normal - Integumentary Integumentary: Present: clear, warm, dry - Musculoskeletal Musculoskeletal: generalized weakness - Psychiatric Psychiatric: depressed, other (Altered sensorium) - Neurologic Neurologic: CNII-XII intact, moves all extremities, other (Alert but confused, not able to answer questions) - Allied Health Allied health notes reviewed: nursing, case management HEART Score - HEART Score Troponin: Troponin T 0.108 ng/mL (0.00-0.029) H* 04/17/21 10:45 Results - Labs CBC & Chem 7: 04/18/21 05:50 04/18/21 05:50 Labs: Laboratory Last Values WBC 5.4 K/mm3 (4.5-11.0) 04/18/21 05:50 RBC 2.81 M/mm3 (3.65-5.03) L 04/18/21 05:50 Hgb 9.3 gm/dl (10.1-14.3) L 04/18/21 05:50 Hct 28.3 % (30.3-42.9) L D 04/18/21 05:50 MCV 101 fl (79-97) H 04/18/21 05:50 MCH 33 pg (28-32) H 04/18/21 05:50 MCHC 33 % (30-34) 04/18/21 05:50 RDW 25.6 % (13.2-15.2) H 04/18/21 05:50 Plt Count 93 K/mm3 (140-440) L 04/18/21 05:50 Gladwin % (Auto) Salicylic Acid Blender 04/18/21 05:50 Add Manual Diff Complete 04/17/21 10:45 Total Counted 100 04/17/21 10:45 Seg Neuts % (Manual) 81.0 % (40.0-70.0) H 04/17/21 10:45 Lymphocytes % (Manual) 19.0 % (13.4-35.0) 04/17/21 10:45 Nucleated RBC % 2.0 % (0.0-0.9) H 04/17/21 10:45 Seg Neutrophils # Man 3.2 K/mm3 (1.8-7.7) 04/17/21 10:45 Band Neutrophils # 0.0 K/mm3 04/17/21 10:45 Lymphocytes # (Manual) 0.7 K/mm3 (1.2-5.4) L 04/17/21 10:45 Abs React Lymphs (Man) 0.0 K/mm3 04/17/21 10:45 Monocytes # (Manual) 0.0 K/mm3 (0.0-0.8) 04/17/21 10:45 Eosinophils # (Manual) 0.0 K/mm3 (0.0-0.4) 04/17/21 10:45 Basophils # (Manual) 0.0 K/mm3 (0.0-0.1) 04/17/21 10:45 Metamyelocytes # 0.0 K/mm3 04/17/21 10:45 Myelocytes # 0.0 K/mm3 04/17/21 10:45 Promyelocytes # 0.0 K/mm3 04/17/21 10:45 Blast Cells # 0.0 K/mm3 04/17/21 10:45 WBC Morphology Not Reportable 04/17/21 10:45 Hypersegmented Neuts Not Reportable 04/17/21 10:45 Hyposegmented Neuts Not Reportable 04/17/21 10:45 Hypogranular Neuts Not Reportable 04/17/21 10:45 Smudge Cells Not Reportable 04/17/21 10:45 Toxic Granulation Not Reportable 04/17/21 10:45 Toxic Vacuolation Not Reportable 04/17/21 10:45 Dohle Bodies Not Reportable 04/17/21 10:45 Pelger-Huet Anomaly Not Reportable 04/17/21 10:45 Vikki Rods Not Reportable 04/17/21 10:45 Platelet Estimate Consistent w auto 04/17/21 10:45 Clumped Platelets Not Reportable 04/17/21 10:45 Plt Clumps, EDTA Not Reportable 04/17/21 10:45 Large Platelets Not Reportable 04/17/21 10:45 Giant Platelets Not Reportable 04/17/21 10:45 Platelet Satelliting Not Reportable 04/17/21 10:45 Plt Morphology Comment Not Reportable 04/17/21 10:45 RBC Morphology Not Reportable 04/17/21 10:45 Dimorphic RBCs Not Reportable 04/17/21 10:45 Polychromasia Not Reportable 04/17/21 10:45 Hypochromasia Rare 04/17/21 10:45 Poikilocytosis Not Reportable 04/17/21 10:45 Anisocytosis 1+ 04/17/21 10:45 Microcytosis Not Reportable 04/17/21 10:45 Macrocytosis Not Reportable 04/17/21 10:45 Spherocytes Not Reportable 04/17/21 10:45 Pappenheimer Bodies Not Reportable 04/17/21 10:45 Sickle Cells Not Reportable 04/17/21 10:45 Target Cells Not Reportable 04/17/21 10:45 Tear Drop Cells Not Reportable 04/17/21 10:45 Ovalocytes Rare 04/17/21 10:45 Helmet Cells Not Reportable 04/17/21 10:45 Ortiz-Schertz Bodies Not Reportable 04/17/21 10:45 Farnsworth Rings Not Reportable 04/17/21 10:45 [place] Cells Not Reportable 04/17/21 10:45 Bite Cells Not Reportable 04/17/21 10:45 Crenated Cell Not Reportable 04/17/21 10:45 Elliptocytes Not Reportable 04/17/21 10:45 Acanthocytes (Spur) Not Reportable 04/17/21 10:45 Rouleaux Not Reportable 04/17/21 10:45 Hemoglobin C Crystals Not Reportable 04/17/21 10:45 Schistocytes Rare 04/17/21 10:45 Malaria parasites Not Reportable 04/17/21 10:45 Gilberto Bodies Not Reportable 04/17/21 10:45 Hem Pathologist Commnt No 04/17/21 10:45 PT 15.5 Sec. (12.2-14.9) H 04/17/21 10:45 INR 1.18 (0.87-1.13) H 04/17/21 10:45 APTT 37.1 Sec. (24.2-36.6) H 04/17/21 10:45 Thrombin Time 17.7 Sec. (15.1-19.6) 04/17/21 10:45 Sodium 137 mmol/L (137-145) 04/18/21 05:50 Potassium 4.6 mmol/L (3.6-5.0) 04/18/21 05:50 Chloride 96.6 mmol/L (98-107) L 04/18/21 05:50 Carbon Dioxide 28 mmol/L (22-30) 04/18/21 05:50 Anion Gap 17 mmol/L 04/18/21 05:50 BUN 51 mg/dL (7-17) H 04/18/21 05:50 Creatinine 5.2 mg/dL (0.6-1.2) H 04/18/21 05:50 Estimated GFR 11 ml/min 04/18/21 05:50 BUN/Creatinine Ratio 10 % 07/04/21 05:50 Glucose 126 mg/dL (65-100) H 04/18/21 05:50 POC Glucose 145 mg/dL (70-105) H 04/18/21 05:11 Hemoglobin A1c 6.9 % (4-6) H 04/17/21 12:27 Calcium 9.0 mg/dL (8.4-10.2) D 04/18/21 05:50 Total Bilirubin 0.40 mg/dL (0.1-1.2) 04/18/21 05:50 AST 58 units/L (5-40) H 04/18/21 05:50 ALT 58 units/L (7-56) H 04/18/21 05:50 Alkaline Phosphatase 433 units/L (35-129) H 04/18/21 05:50 Ammonia 22.0 umol/L (25-60) L 04/17/21 10:45 Total Creatine Kinase 118 units/L (30-135) 04/17/21 10:45 CK-MB (CK-2) 6.7 ng/mL (0.0-4.0) H 04/17/21 10:45 CK-MB (CK-2) Rel Index 5.6 (0-4) H 04/17/21 10:45 Troponin T 0.108 ng/mL (0.00-0.029) H* 04/17/21 10:45 Total Protein 6.5 g/dL (6.3-8.2) 04/18/21 05:50 Albumin 3.5 g/dL (3.9-5) L 04/18/21 05:50 Albumin/Globulin Ratio 1.2 % 04/18/21 05:50 TSH 65.360 mlU/mL (0.270-4.200) H 04/18/21 05:50 TSH 65.470 mlU/mL (0.270-4.200) H 04/18/21 05:50 Free T4 0.52 ng/dL (0.76-1.46) L 04/18/21 05:50 Urine Color Yellow (Yellow) 04/17/21 12:03 Urine Turbidity Turbid (Clear) 04/17/21 12:03 Urine pH 7.0 (5.0-7.0) 04/17/21 12:03 Ur Specific [place] 1.023 (1.003-1.030) 04/17/21 12:03 Urine Protein 100 mg/dl mg/dL (Negative) 04/17/21 12:03 Urine Glucose (UA) 150 mg/dL (Negative) 04/17/21 12:03 Urine Ketones Neg mg/dL (Negative) 04/17/21 12:03 Urine Blood Mod (Negative) 04/17/21 12:03 Urine Nitrite Neg (Negative) 04/17/21 12:03 Urine Bilirubin Neg (Negative) 04/17/21 12:03 Urine Urobilinogen < 2.0 mg/dL (<2.0) 04/17/21 12:03 Ur Leukocyte Esterase Mod (Negative) 04/17/21 12:03 Urine WBC (Auto) > 182.0 /HPF (0.0-6.0) H 04/17/21 12:03 Urine RBC (Auto) > 182.0 /HPF (0.0-6.0) 04/17/21 12:03 U Epithel Cells (Auto) 82.0 /HPF (0-13.0) H 04/17/21 12:03 Urine WBC Clumps 3+ /HPF 04/17/21 12:03 Urine Opiates Screen Negative 04/17/21 12:03 Urine Methadone Screen Negative 04/17/21 12:03 Ur Barbiturates Screen Negative 04/17/21 12:03 Ur Phencyclidine Scrn Negative 04/17/21 12:03 Ur Amphetamines Screen Negative 04/17/21 12:03 U Benzodiazepines Scrn Negative 04/17/21 12:03 Urine Cocaine Screen Negative 04/17/21 12:03 U Marijuana (THC) Screen Negative 04/17/21 12:03 Drugs of Abuse Note Disclamer 04/17/21 12:03 Plasma/Serum Alcohol < 0.01 % (0-0.07) 04/17/21 10:45 Blood Type O POSITIVE 04/17/21 11:07 Antibody Screen Negative 04/17/21 11:07 Crossmatch See Detail 04/17/21 11:07 Short CBC 04/17/21 04/18/21 Range/Units 10:45 05:50 WBC 3.9 L 5.4 (4.5-11.0) K/mm3 Hgb 6.9 L 9.3 L (10.1-14.3) gm/dl Hct 21.3 L 28.3 L D (30.3-42.9) % Plt Count 52 L 93 L (140-440) K/mm3 BMP 04/17/21 04/18/21 10:45 05:50 Sodium 137 137 Potassium 4.0 4.6 Chloride 101.3 96.6 L Carbon Dioxide 26 28 BUN 37 H 51 H Creatinine 4.3 H 5.2 H Glucose 207 H 126 H Calcium 7.7 L 9.0 D Cardiac Enzymes 04/17/21 Range/Units 10:45 Total Creatine Kinase 118 (30-135) units/L CK-MB (CK-2) 6.7 H (0.0-4.0) ng/mL Troponin T 0.108 H* (0.00-0.029) ng/mL Liver Function 04/17/21 04/18/21 Range/Units 10:45 05:50 Total Bilirubin 0.50 0.40 (0.1-1.2) mg/dL AST 73 H 58 H (5-40) units/L ALT 58 H 58 H (7-56) units/L Alkaline Phosphatase 379 H 433 H (35-129) units/L Albumin 2.9 L 3.5 L (3.9-5) g/dL Urine 04/17/21 Range/Units 12:03 Urine Color Yellow (Yellow) Urine pH 7.0 (5.0-7.0) Ur Specific [place] 1.023 (1.003-1.030) Urine Protein 100 mg/dl (Negative) mg/dL Urine Glucose (UA) 150 (Negative) mg/dL Assessment and Plan Advance Directives: Yes (Full code) VTE prophylaxis?: Chemical Plan of care discussed with patient/family: Yes - Patient Problems (1) Acute encephalopathy Current Visit: Yes Status: Acute Plan to address problem: Secondary to severe myxedema TSH is 83 and free T4 is 0.1 Patient started on IV thyroxine (2) Myxedema coma Current Visit: Yes Status: Acute Plan to address problem: Was near comatose but now alert but not oriented IV thyroxine at 150 mcg q. 24 May increase the dosage after verbal consultation with known insulation power unit tender (3) Transaminitis Current Visit: Yes Status: Chronic Plan to address problem: Probably secondary to fatty liver Check acute hepatitis profile (4) Acute kidney injury superimposed on CKD Current Visit: Yes Status: Acute Plan to address problem: IV fluids for now Nephrology consult (5) Malnutrition Current Visit: Yes Status: Chronic Qualifiers: Protein-calorie malnutrition severity: moderate Plan to address problem: Dietitian consult requested (6) Elevated troponin Current Visit: Yes Status: Acute Plan to address problem: Nonspecific Check CK and CK-MB (7) IDDM (insulin dependent diabetes mellitus) Current Visit: Yes Status: Chronic Plan to address problem: Coverage for now (8) Anemia Current Visit: Yes Status: Chronic Qualifiers: Anemia type: unspecified type Qualified Code(s): D64.9 - Anemia, unspecified Plan to address problem: Transfuse 1 unit of packed red blood cells (9) DVT prophylaxis Current Visit: Yes Status: Acute Plan to address problem: On heparin and GI prophylaxis
[2021-04-18] MEDS: FAMOTIDINE 20 MG/2 ML INJ IV SCH (10:26)
[2021-04-18] MEDS ORDERED: DEXTROSE 50% IN WATER (25GM) 50 ML SYRINGE IV ONE ×2 (12:01→16:04)
[2021-04-18] MEDS ORDERED: DEXTROSE 50% IN WATER (25GM) 50 ML VIAL IV PRN (12:20)
--- NOTE | 2021-04-18 12:34 | Progress Note ---
Assessment and Plan The high probability of a clinically significant, sudden or life threatening deterioration of the [x] system(s) required my full and direct attention, intervention and personal management. The aggregate critical care time was [39] minutes. This time is in addition to time spent performing reported procedures but includes the following: [x] Data Review and interpretation [x] Patient assessment and monitoring of vital signs [x] Documentation [x] Medication orders and management - Patient Problems (1) Acute encephalopathy Current Visit: Yes Status: Acute Plan to address problem: Acute encephalopathy at this point multifactorial secondary to myxedema coma and also septic shock. -Correct underlying etiology with levothyroxine -Supportive care empiric antibiotics Rocephin -Judicious use of IV fluids given patient has end-stage renal disease. -Has had some improvement. Patient does have baseline cognitive impairment along with blindness and deafness unsure of baseline. (2) Acute kidney injury superimposed on CKD Current Visit: Yes Status: Acute Plan to address problem: End-stage renal disease-continue hemodialysis nephrology been consulted (3) Hypertension Current Visit: Yes Status: Acute Qualifiers: Hypertension type: unspecified Qualified Code(s): I10 - Essential (primary) hypertension Plan to address problem: Patient now hypotensive and bradycardic. Could be from sepsis versus myxedema. Will hold metoprolol at this particular time. (4) Myxedema coma Current Visit: Yes Status: Acute Plan to address problem: Patient with evidence of myxedema coma on physical exam patient shows evidence of confusion, swelling of the face and eyelids, low blood pressure, bradycardia and TSH in the 80s. Patient also shows evidence low-sodium, increase CO2, increased confusion all consistent with myxedema coma. -Continue to treat with levothyroxine at this particular time benefits outweigh the risk of patient having a rash. Patient has also been taking levothyroxine recently without any difficulty. Had one episode of a rash but no tongue swelling no eyelid swelling. -We will observe in ICU for cardiopulmonary problems associated with myxedema. -We will closely observe sodium and carbon dioxide magnesium -Also treat underlying infection UTI. (5) Thrombocytopenia Current Visit: Yes Status: Acute Plan to address problem: Most likely secondary to sepsis. Sepsis with UTI. Has improved somewhat with second blood study (6) UTI (urinary tract infection) Current Visit: Yes Status: Acute Qualifiers: Urinary tract infection type: acute cystitis Hematuria presence: with hematuria Qualified Code(s): N30.01 - Acute cystitis with hematuria Plan to address problem: Sepsis with UTI.Same blood cultures urine cultures have already been obtained. We will continue Rocephin Continue supportive care Presses if necessary (7) IDDM (insulin dependent diabetes mellitus) Current Visit: Yes Status: Chronic Plan to address problem: At this time will place patient only on sliding scale insulin. Last several blood glucose patient was found to be hypoglycemic. Patient is usually is on TPN at home. Family unable to hold down p.o. secondary to severe gastroparesis. Family states just about everything she eats comes up after 15 minutes. Therefore patient was on chronic TPN. We will add TPN back per dietitian consult will help for hypoglycemia. Have not been able to start P TPN up to this point. May need to start small dose of D5 until TPN has been made. (8) Malnutrition Current Visit: Yes Status: Chronic Qualifiers: Protein-calorie malnutrition severity: moderate Plan to address problem: Restart TPN secondary to severe gastroparesis. (9) BURCIAGA (nonalcoholic steatohepatitis) Current Visit: Yes Status: Chronic Plan to address problem: Follow transaminases. Apparently waiting pancreatic transplant (10) Septic shock due to urinary tract infection Current Visit: Yes Status: Acute Plan to address problem: See previous sepsis with UTI. (11) Anemia Current Visit: Yes Status: Acute Plan to address problem: Currently no evidence of active bleeding. Responded to transfusion. Subjective Date of service: 04/18/21 Principal diagnosis: Myxedema coma myxedema crisis sepsis Interval history: 35-year-old female extensive medical problems including diabetes, end-stage renal disease, Burciaga, previous TIA versus CVA. Severe gastroparesis requiring TPN. Hypothyroidism. Present to ED with acute episode of confusion approximately 4:30 AM. Patient family stated she was less responsive not able to answer questions as she usually does. I did speak with daughter in detail [phone]. 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 Also hard of hearing. Patient was able to hear me and understand me adequately. She was still confused wondering where she was. Why did they change my room from downstairs. I thought I was going home. I did speak to her about le vothyroxine. Patient family gave brief history of having a rash with levothyroxine. No tongue swelling no hypotension. I also explained to the family what myxedema crisis was. And that the benefits outweigh risk at this time. Patient remains acute on chronically ill. Hospital course complicated today by hypoglycemia, hypothermia. Could also be secondary to sepsis as well. Important to note that patient's responsiveness although abnormal per family prior hospitalization, patient does not respond normally secondary to blindness and deafness. Objective - Constitutional Vitals: Vital Signs - 12hr 04/18/21 04/18/21 04/18/21 00:31 00:41 00:51 Temperature Pulse Rate 68 68 67 Pulse Rate [ From Monitor] Respiratory 5 L 5 L 5 L Rate Blood Pressure 165/92 165/92 165/92 O2 Sat by Pulse 99 98 99 Oximetry 04/18/21 04/18/21 04/18/21 01:00 01:11 01:21 Temperature Pulse Rate 68 68 69 Pulse Rate [ From Monitor] Respiratory 8 L 7 L 8 L Rate Blood Pressure 164/95 164/95 164/95 O2 Sat by Pulse 99 100 100 Oximetry 04/18/21 04/18/21 04/18/21 01:31 01:41 01:51 Temperature Pulse Rate 69 68 68 Pulse Rate [ From Monitor] Respiratory 8 L 17 5 L Rate Blood Pressure 164/95 164/95 164/95 O2 Sat by Pulse 100 99 99 Oximetry 04/18/21 04/18/21 04/18/21 02:00 02:11 02:21 Temperature Pulse Rate 68 68 67 Pulse Rate [ From Monitor] Respiratory 8 L 8 L 4 L Rate Blood Pressure 192/102 192/102 192/102 O2 Sat by Pulse 100 100 100 Oximetry 04/18/21 04/18/21 04/18/21 02:23 02:31 02:41 Temperature Pulse Rate 67 69 68 Pulse Rate [ From Monitor] Respiratory 10 L 17 Rate Blood Pressure 192/102 166/91 166/91 O2 Sat by Pulse 100 99 Oximetry 04/18/21 04/18/21 04/18/21 02:51 03:00 03:11 Temperature Pulse Rate 67 66 65 Pulse Rate [ From Monitor] Respiratory 9 L 8 L 9 L Rate Blood Pressure 166/91 155/86 155/86 O2 Sat by Pulse 99 100 96 Oximetry 04/18/21 04/18/21 04/18/21 03:21 03:30 03:40 Temperature Pulse Rate 64 64 64 Pulse Rate [ From Monitor] Respiratory 9 L 9 L 10 L Rate Blood Pressure 166/91 129/80 129/80 O2 Sat by Pulse 97 98 98 Oximetry 04/18/21 04/18/21 04/18/21 03:50 03:54 04:00 Temperature 96.5 F L Pulse Rate 63 62 Pulse Rate [ 63 From Monitor] Respiratory 11 L 11 L Rate Blood Pressure 129/80 129/80 O2 Sat by Pulse 97 98 Oximetry 04/18/21 04/18/21 04/18/21 04:10 04:20 04:30 Temperature Pulse Rate 62 61 61 Pulse Rate [ From Monitor] Respiratory 11 L 10 L 11 L Rate Blood Pressure 131/71 131/71 131/71 O2 Sat by Pulse 98 97 98 Oximetry 04/18/21 04/18/21 04/18/21 04:40 04:50 05:00 Temperature Pulse Rate 61 60 60 Pulse Rate [ From Monitor] Respiratory 11 L 15 10 L Rate Blood Pressure 114/81 114/81 114/81 O2 Sat by Pulse 98 98 98 Oximetry 04/18/21 04/18/21 04/18/21 05:10 05:21 05:30 Temperature Pulse Rate 60 60 60 Pulse Rate [ From Monitor] Respiratory 14 9 L 8 L Rate Blood Pressure 126/80 131/71 120/71 O2 Sat by Pulse 98 100 99 Oximetry 04/18/21 04/18/21 04/18/21 05:41 05:51 06:00 Temperature Pulse Rate 60 60 62 Pulse Rate [ From Monitor] Respiratory 9 L 11 L 6 L Rate Blood Pressure 120/71 120/71 133/90 O2 Sat by Pulse 98 98 97 Oximetry 04/18/21 04/18/21 04/18/21 06:11 06:21 06:30 Temperature Pulse Rate 61 63 62 Pulse Rate [ From Monitor] Respiratory 9 L 12 8 L Rate Blood Pressure 133/90 133/90 118/75 O2 Sat by Pulse 98 94 97 Oximetry 04/18/21 04/18/21 04/18/21 06:34 06:41 06:51 Temperature 97.6 F Pulse Rate 62 62 Pulse Rate [ From Monitor] Respiratory 9 L 7 L Rate Blood Pressure 118/75 118/75 O2 Sat by Pulse 97 92 Oximetry 04/18/21 04/18/21 04/18/21 07:00 07:11 07:21 Temperature Pulse Rate 61 61 60 Pulse Rate [ From Monitor] Respiratory 8 L 7 L 8 L Rate Blood Pressure 127/79 127/79 127/79 O2 Sat by Pulse 91 88 90 Oximetry 04/18/21 04/18/21 04/18/21 07:30 07:41 07:46 Temperature Pulse Rate 59 L 58 L Pulse Rate [ From Monitor] Respiratory 5 L 6 L Rate Blood Pressure 116/74 116/74 O2 Sat by Pulse 88 92 91 Oximetry 04/18/21 04/18/21 04/18/21 07:51 08:00 08:01 Temperature 97.4 F L Pulse Rate 58 L 57 L Pulse Rate [ 59 L From Monitor] Respiratory 6 L 8 L 15 Rate Blood Pressure 116/74 92/58 O2 Sat by Pulse 91 98 66 L Oximetry 04/18/21 04/18/21 04/18/21 08:11 08:15 08:21 Temperature Pulse Rate 59 L 60 Pulse Rate [ From Monitor] Respiratory 11 L 5 L Rate Blood Pressure 100/68 100/68 O2 Sat by Pulse 100 95 100 Oximetry 04/18/21 04/18/21 04/18/21 08:30 08:41 08:51 Temperature Pulse Rate 59 L 58 L 58 L Pulse Rate [ From Monitor] Respiratory 7 L 5 L 4 L Rate Blood Pressure 127/76 116/74 133/82 O2 Sat by Pulse 100 100 100 Oximetry 04/18/21 04/18/21 04/18/21 09:00 09:11 09:21 Temperature Pulse Rate 58 L 58 L 58 L Pulse Rate [ From Monitor] Respiratory 4 L 7 L 5 L Rate Blood Pressure 122/80 122/80 120/76 O2 Sat by Pulse 100 100 100 Oximetry 04/18/21 04/18/21 04/18/21 09:30 09:41 09:51 Temperature Pulse Rate 58 L 59 L 61 Pulse Rate [ From Monitor] Respiratory 5 L 8 L 9 L Rate Blood Pressure 123/79 123/79 114/75 O2 Sat by Pulse 100 99 100 Oximetry 04/18/21 04/18/21 04/18/21 10:00 10:11 10:21 Temperature Pulse Rate 63 62 62 Pulse Rate [ From Monitor] Respiratory 7 L 8 L 7 L Rate Blood Pressure 124/78 124/78 126/78 O2 Sat by Pulse 100 100 100 Oximetry 04/18/21 04/18/21 04/18/21 10:30 10:41 10:51 Temperature Pulse Rate 62 62 62 Pulse Rate [ From Monitor] Respiratory 5 L 6 L 7 L Rate Blood Pressure 117/73 126/78 111/68 O2 Sat by Pulse 100 100 100 Oximetry 04/18/21 04/18/21 04/18/21 11:00 11:11 11:21 Temperature Pulse Rate 63 63 63 Pulse Rate [ From Monitor] Respiratory 7 L 7 L 7 L Rate Blood Pressure 99/57 111/68 106/64 O2 Sat by Pulse 90 100 100 Oximetry 04/18/21 04/18/21 04/18/21 11:30 11:41 11:51 Temperature Pulse Rate 63 64 65 Pulse Rate [ From Monitor] Respiratory 8 L 9 L 8 L Rate Blood Pressure 106/67 106/67 113/67 O2 Sat by Pulse 100 100 100 Oximetry 04/18/21 04/18/21 12:00 12:11 Temperature Pulse Rate 65 62 Pulse Rate [ 59 L From Monitor] Respiratory 8 L 5 L Rate Blood Pressure 115/68 115/68 O2 Sat by Pulse 100 100 Oximetry General appearance: Present: no acute distress, other (Very confused facial swelling eyelid swelling) - EENT Eyes: PERRL ENT: hearing decreased - Neck Neck: supple, normal ROM, other (No tongue swelling no evidence of obvious enlargement of thyroid) - Respiratory Respiratory: bilateral: CTA, negative: diminished (Poor inspiratory effort) - Cardiovascular Rhythm: other (Bradycardia at 50-52) Heart Sounds: Present: S1 & S2. Absent: gallop, rub Extremities: pulses intact, No edema, normal color, Full ROM Extremity abnormal: other (Lower extremity swelling edema) - Gastrointestinal General gastrointestinal: Present: soft, non-tender, non-distended, normal bowel sounds, other (Patient uses TPN at home for severe gastroparesis.) - Musculoskeletal Musculoskeletal: generalized weakness - Neurologic Neurologic: gait normal, other (Alert at times. Lethargy has improved but remains confused. Not exactly sure baseline.) - Labs CBC & Chem 7: 04/18/21 05:50 04/18/21 05:50 Labs: Abnormal lab results 04/17/21 04/17/21 04/17/21 Range/Units 10:45 11:07 12:03 RBC (3.65-5.03) M/mm3 Hgb (10.1-14.3) gm/dl Hct (30.3-42.9) % MCV (79-97) fl MCH (28-32) pg RDW (13.2-15.2) % Plt Count (140-440) K/mm3 Seg Neuts % (Manual) 81.0 H (40.0-70.0) % Nucleated RBC % 2.0 H (0.0-0.9) % Lymphocytes # (Manual) 0.7 L (1.2-5.4) K/mm3 Chloride (98-107) mmol/L BUN (7-17) mg/dL Creatinine (0.6-1.2) mg/dL Glucose (65-100) mg/dL POC Glucose (70-105) mg/dL Hemoglobin A1c (4-6) % AST (5-40) units/L ALT (7-56) units/L Alkaline Phosphatase (35-129) units/L Albumin (3.9-5) g/dL TSH (0.270-4.200) mlU/mL Free T4 (0.76-1.46) ng/dL Urine WBC (Auto) > 182.0 H (0.0-6.0) /HPF U Epithel Cells (Auto) 82.0 H (0-13.0) /HPF Crossmatch See Detail 04/17/21 04/17/21 04/17/21 Range/Units 12:27 12:27 12:27 RBC (3.65-5.03) M/mm3 Hgb (10.1-14.3) gm/dl Hct (30.3-42.9) % MCV (79-97) fl MCH (28-32) pg RDW (13.2-15.2) % Plt Count (140-440) K/mm3 Seg Neuts % (Manual) (40.0-70.0) % Nucleated RBC % (0.0-0.9) % Lymphocytes # (Manual) (1.2-5.4) K/mm3 Chloride (98-107) mmol/L BUN (7-17) mg/dL Creatinine (0.6-1.2) mg/dL Glucose (65-100) mg/dL POC Glucose (70-105) mg/dL Hemoglobin A1c 6.9 H (4-6) % AST (5-40) units/L ALT (7-56) units/L Alkaline Phosphatase (35-129) units/L Albumin (3.9-5) g/dL TSH 81.690 H (0.270-4.200) mlU/mL Free T4 0.51 L (0.76-1.46) ng/dL Urine WBC (Auto) (0.0-6.0) /HPF U Epithel Cells (Auto) (0-13.0) /HPF Crossmatch 04/17/21 04/17/21 04/18/21 Range/Units 17:13 23:20 05:11 RBC (3.65-5.03) M/mm3 Hgb (10.1-14.3) gm/dl Hct (30.3-42.9) % MCV (79-97) fl MCH (28-32) pg RDW (13.2-15.2) % Plt Count (140-440) K/mm3 Seg Neuts % (Manual) (40.0-70.0) % Nucleated RBC % (0.0-0.9) % Lymphocytes # (Manual) (1.2-5.4) K/mm3 Chloride (98-107) mmol/L BUN (7-17) mg/dL Creatinine (0.6-1.2) mg/dL Glucose (65-100) mg/dL POC Glucose 246 H 304 H 145 H (70-105) mg/dL Hemoglobin A1c (4-6) % AST (5-40) units/L ALT (7-56) units/L Alkaline Phosphatase (35-129) units/L Albumin (3.9-5) g/dL TSH (0.270-4.200) mlU/mL Free T4 (0.76-1.46) ng/dL Urine WBC (Auto) (0.0-6.0) /HPF U Epithel Cells (Auto) (0-13.0) /HPF Crossmatch 04/18/21 04/18/21 04/18/21 Range/Units 05:50 05:50 05:50 RBC 2.81 L (3.65-5.03) M/mm3 Hgb 9.3 L (10.1-14.3) gm/dl Hct 28.3 L D (30.3-42.9) % MCV 101 H (79-97) fl MCH 33 H (28-32) pg RDW 25.6 H (13.2-15.2) % Plt Count 93 L (140-440) K/mm3 Seg Neuts % (Manual) (40.0-70.0) % Nucleated RBC % (0.0-0.9) % Lymphocytes # (Manual) (1.2-5.4) K/mm3 Chloride 96.6 L (98-107) mmol/L BUN 51 H (7-17) mg/dL Creatinine 5.2 H (0.6-1.2) mg/dL Glucose 126 H (65-100) mg/dL POC Glucose (70-105) mg/dL Hemoglobin A1c (4-6) % AST 58 H (5-40) units/L ALT 58 H (7-56) units/L Alkaline Phosphatase 433 H (35-129) units/L Albumin 3.5 L (3.9-5) g/dL TSH 65.360 H (0.270-4.200) mlU/mL Free T4 (0.76-1.46) ng/dL Urine WBC (Auto) (0.0-6.0) /HPF U Epithel Cells (Auto) (0-13.0) /HPF Crossmatch 04/18/21 04/18/21 Range/Units 05:50 11:49 RBC (3.65-5.03) M/mm3 Hgb (10.1-14.3) gm/dl Hct (30.3-42.9) % MCV (79-97) fl MCH (28-32) pg RDW (13.2-15.2) % Plt Count (140-440) K/mm3 Seg Neuts % (Manual) (40.0-70.0) % Nucleated RBC % (0.0-0.9) % Lymphocytes # (Manual) (1.2-5.4) K/mm3 Chloride (98-107) mmol/L BUN (7-17) mg/dL Creatinine (0.6-1.2) mg/dL Glucose (65-100) mg/dL POC Glucose < 10 L (70-105) mg/dL Hemoglobin A1c (4-6) % AST (5-40) units/L ALT (7-56) units/L Alkaline Phosphatase (35-129) units/L Albumin (3.9-5) g/dL TSH 65.470 H (0.270-4.200) mlU/mL Free T4 0.52 L (0.76-1.46) ng/dL Urine WBC (Auto) (0.0-6.0) /HPF U Epithel Cells (Auto) (0-13.0) /HPF Crossmatch - Imaging and cardiology Chest x-ray: report reviewed, image reviewed CT Scan - head: report reviewed, image reviewed HEART Score - HEART Score Troponin: Troponin T 0.108 ng/mL (0.00-0.029) H* 04/17/21 10:45
[2021-04-18] MEDS ORDERED: D5W/0.45% NACL 1,000 ML IV SCH (13:00)
[2021-04-18 14:27] LABS: Total Cells Counted 100
[2021-04-18 14:34] LABS: Anisocytosis 2+; Band Neutrophils # (Manual) 0.1 K/mm3; Hypochromasia 1+; Macrocytosis 1+; Platelet Estimate Consistent w Auto
[2021-04-18] MEDS ORDERED: cefTRIAXone/NS 1 GM/50 ML 1 GM/50 ML BAG IV SCH (15:00)
[2021-04-18 15:25] LABS: Hepatitis B Surface Antigen Non-Reactive (Negative); Hepatitis C Virus Antibody Non-Reactive (NonReactive)
[2021-04-18] MEDS ORDERED: DEXTROSE 50% IN WATER (25GM) 50 ML SYRINGE IV PRN (16:10)
--- NOTE | 2021-04-18 20:24 | Event Note ---
Date: 04/18/21 Patient wanted to sign out AMA. Patient was told about the dangers of hypothyroidism. Patient states that she has thyroid medication at home and that she is going to take the thyroid medication. Apparently she is evaluated at [place] and she says that she has thyroid medication and she is going to take the thyroid medicine Known risks of signing AMA patient wanted to sign AMA. Patient is alert and oriented and can make decisions for herself. No psychosis or altered mental state.
[2021-04-18 21:20] VITALS: BP 132/76
--- NOTE | 2021-04-22 10:51 | Electrocardiograph Report ---
[facility] Test Date: 2021-04-17 Test Time: 11:13:44 Pat Name: TAN MCGUIRE Department: Room: A264 1 Gender: F [employer] Paver: LETY : 1985 Requested By: BLAZE MARTINEZ Order Number: [id number] Reading MD: Emanuel Monteiro Measurements Intervals [place] Rate: 68 P: 82 WA: 186 QRS: 53 QRSD: 94 T: 70 QT: 450 QTc: 480 Interpretive Statements Sinus rhythm Probable left atrial enlargement Anteroseptal infarct, age indeterminate No previous ECG available for comparison Electronically Signed On 04-22-2021 10:50:46 EDT by Emanuel Monteiro
== END 2021-04-18 21:00 | disposition left against medical advice (07) | DRG 871 ==
LOC: ED 10:19 → IMCU 14:41
PROVIDERS: ADMIT Internal Medicine; ATTEND Internal Medicine
PROC: 30233N1 Transfusion of Nonautologous Red Blood Cells into Peripheral Vein, Percutaneous Approach (ICD-10-PCS; principal; 2021-04-18)
DX: A41.9 Sepsis, unspecified organism (principal); N18.6 End stage renal disease; E03.5 Myxedema coma; R65.21 Severe sepsis with septic shock; I12.0 Hypertensive chronic kidney disease with stage 5 chronic kidney disease or end stage renal disease; G93.40 Encephalopathy, unspecified; N30.01 Acute cystitis with hematuria; E44.0 Moderate protein-calorie malnutrition; N17.9 Acute kidney failure, unspecified; Z68.1 Body mass index [BMI] 19.9 or less, adult; Z20.822 Contact with and (suspected) exposure to COVID-19; R41.82 Altered mental status, unspecified; R74.01 Elevation of levels of liver transaminase levels; E11.22 Type 2 diabetes mellitus with diabetic chronic kidney disease; Z96.641 Presence of right artificial hip joint; E03.9 Hypothyroidism, unspecified; D64.9 Anemia, unspecified; K75.81 Nonalcoholic steatohepatitis (NASH); D69.6 Thrombocytopenia, unspecified; R79.89 Other specified abnormal findings of blood chemistry; E11.65 Type 2 diabetes mellitus with hyperglycemia; Z98.51 Tubal ligation status; Z86.19 Personal history of other infectious and parasitic diseases; Z99.2 Dependence on renal dialysis; Z79.4 Long term (current) use of insulin; Z79.899 Other long term (current) drug therapy; Z79.891 Long term (current) use of opiate analgesic; Z79.01 Long term (current) use of anticoagulants; Z88.8 Allergy status to other drugs, medicaments and biological substances; Z88.9 Allergy status to unspecified drugs, medicaments and biological substances
CPT/HCPCS: 36415; 70450; 71045; 80053; 80074; 80307; 80320; 81001; 82140; 82550; 82553; 82947; 82962; 83036; 84439; 84443; 84484; 85007; 85025; 85610; 85670; 85730; 86850; 86900; 86901; 86920; 93005; 96374; 96375; G0378; J7070; G0480; J0360; J0696; J1200; J1815; J2060; J2310; P9016; U0003